=== PATIENT | female | born 1945 | race Caucasian/White ===

== ENCOUNTER → 2017-04-14 | Outpatient (CLI) | payer MEDICARE, BC ==
--- NOTE | 2017-04-17 10:12 | MM ---
Reason for exam: screening (asymptomatic). Last mammogram was performed 1 year ago. History: Patient is postmenopausal. Took estrogen for 6 years. Took progesterone for 6 years. Physical Findings: A clinical breast exam by your physician is recommended on an annual basis and results should be correlated with mammographic findings. MG 3D Screening Mammo W/Cad Bilateral CC and MLO view(s) were taken. Prior study comparison: April 11, 2016, bilateral MG 3d screening mammo w/cad. June 20, 2012, [facility] DIGITAL RIGHT MAMMOGRAM w/CAD. The breast tissue is heterogeneously dense. This may lower the sensitivity of mammography. There is no discrete abnormality. No significant changes when compared with prior studies. ASSESSMENT: Negative, BI-RAD 1 RECOMMENDATION: Routine screening mammogram of both breasts in 1 year.
== END | disposition home or self-care (01) ==
LOC: RADMAMWWP 09:44
PROVIDERS: ATTEND Internal Medicine Geriatric Medicine
DX: Z12.31 Encounter for screening mammogram for malignant neoplasm of breast (principal)
CPT/HCPCS: 77063; G0202

== ENCOUNTER 2017-05-31 08:29 | Day surgery (SDC) | payer MEDICARE, BC ==
[2017-05-29 13:44] VITALS: BMI 28.3
[~2017-05-31 08:29] MED LIST: LIDOCAINE 1% 20 ML VIAL (10MG/ML) FOR IV START INTRADERMA PRN
[2017-05-31 08:45] VITALS: RESP 16; TEMP 98.3
[2017-05-31] MEDS ORDERED: LIDOCAINE 1% 20 ML VIAL (10MG/ML) FOR IV START INTRADERMA ONE (08:52)
[2017-05-31] MEDS: LACTATED RINGERS 1,000 ML IV SCH ×2 (08:52→09:36)
[2017-05-31] MEDS ORDERED: LIDOCAINE 1% INJ 10MG/ML (20 ML MDV) ONE (09:39)
[2017-05-31] MEDS ORDERED: PROPOFOL 10 MG/ML 20 ML VIAL IV ONE (09:39)
--- NOTE | 2017-05-31 09:44 | P.GSHP ---
History of Present Illness H&P Date: 05/31/17 Chief Complaint: Colon cancer screening Patient here today for screening colonoscopy. Last colonoscopy was 15 years ago. That was incomplete and she did require a barium enema following that that was normal. No bowel related complaints. No family history of colon cancer. Past Medical History Past Medical History: Hyperlipidemia, Osteoarthritis (OA), Sleep Apnea/CPAP/ BIPAP Additional Past Medical History / Comment(s): no cpap after weight loss, hemorrhoids, History of Any Multi-Drug Resistant Organisms: None Reported Past Surgical History: Cholecystectomy, Hysterectomy, Orthopedic Surgery, Tubal Ligation Additional Past Surgical History / Comment(s): left knee arthroscopy,sinus surgery, oral surgery, dennis cataracts Past Anesthesia/Blood Transfusion Reactions: Previous Problems w/ Anesthesia, Motion Sickness Additional Past Anesthesia/Blood Transfusion Reaction / Comment(s): oxygen level dropped and heartrate dropped low-ended up in ICU x 2-(general anesthesia) Smoking Status: Never smoker - Past Family History Sister(s) Family Medical History: Cancer Additional Family Medical History / Comment(s): brain Mother Family Medical History: Dementia Additional Family Medical History / Comment(s): Parkinson Father Family Medical History: Myocardial Infarction ([place]) Daughter(s) Family Medical History: Cancer Medications and Allergies Home Medications Medication Instructions Recorded Confirmed Type ALPRAZolam [Xanax] 0.25 mg PO BID PRN 03/28/16 05/31/17 History Aspirin 81 mg PO DAILY 03/28/16 05/31/17 History Atorvastatin [Lipitor] 10 mg PO DAILY 03/28/16 05/31/17 History Ergocalciferol [Vitamin D2 50,000 unit PO Q14D 03/28/16 05/31/17 History (DRISDOL)] Gabapentin [Neurontin] 400 mg PO TID 03/28/16 05/31/17 History Naproxen Sodium [Aleve] 220 - 440 mg PO BID PRN 03/28/16 05/31/17 History Loratadine [Claritin] 10 mg PO DAILY PRN 05/29/17 05/31/17 History Allergies Allergy/AdvReac Type Severity Reaction Status Date / Time duloxetine [From Cymbalta] Allergy Severe THROAT Verified 05/31/17 08:38 SWELLING, UNABLE TO URINATE,LOSS OF APPETITE Surgical - Exam Vital Signs Temp Pulse Resp BP Pulse Ox 98.3 F 56 L 16 101/59 95 05/31/17 08:44 05/31/17 08:44 05/31/17 08:44 05/31/17 08:44 05/31/17 08:44 Physical exam: General: Well-developed, well-nourished HEENT: Normocephalic, sclerae nonicteric Abdomen: Nontender, nondistended Extremities: No edema Neuro: Alert and oriented Assessment and Plan (1) Colon cancer screening Status: Acute
--- NOTE | 2017-05-31 09:57 | P.PCN ---
Date of Procedure: 05/31/17 Procedure(s) Performed: PREOPERATIVE DIAGNOSIS: Colon cancer screening POSTOPERATIVE DIAGNOSIS: Diverticulosis PROCEDURE: Colonoscopy ANESTHESIA: MAC SURGEON: Camden Urbano M.D. SPECIMENS: None ENDOSCOPIC PROCEDURE: The patient was placed on the endoscopy table in the left decubitus position. The Olympus colonoscope was inserted into the anus and passed under direct visualization to the base of the cecum. The appendiceal orifice was visualized. From that point the scope was slowly withdrawn inspecting all surfaces carefully. There were no neoplastic inflammatory or polypoid lesions throughout the cecum, ascending, transverse, descending, sigmoid and rectum. There was moderate diverticulosis noted throughout the colon but particularly in the descending and sigmoid. Digital rectal examination revealed small hemorrhoids. The patient was taken to the recovery room in stable condition per anesthesia guidelines. RECOMMENDATIONS: Increase fiber. Follow-up colonoscopy 10 years.
[2017-05-31 10:36] VITALS: BP 130/64; PULSE 68
== END 2017-05-31 10:56 | disposition home or self-care (01) ==
LOC: ORWHC2ENDO 08:29
PROVIDERS: ATTEND Surgery
DX: Z12.11 Encounter for screening for malignant neoplasm of colon (principal); E78.5 Hyperlipidemia, unspecified; K57.30 Diverticulosis of large intestine without perforation or abscess without bleeding; K64.9 Unspecified hemorrhoids; M19.90 Unspecified osteoarthritis, unspecified site; G47.33 Obstructive sleep apnea (adult) (pediatric); F41.9 Anxiety disorder, unspecified; Z79.82 Long term (current) use of aspirin; Z79.899 Other long term (current) drug therapy
CPT/HCPCS: J2001; J2704; G0121; 45378

== ENCOUNTER 2017-10-07 12:00 | Emergency (ER) | payer MEDICARE, BC ==
[2017-10-07] MEDS ORDERED: HYDROmorphone 0.5 MG/0.5 ML SYRINGE IVP STA (12:44)
--- NOTE | 2017-10-07 12:54 | ED ---
Weakness HPI - General Chief complaint: Weakness Stated complaint: Poss Infection in knee-post op Time Seen by Provider: 10/07/17 12:21 Source: patient, EMS Mode of arrival: EMS Limitations: no limitations - History of Present Illness Initial comments: Patient is a 71-year-old female presenting to the emergency department for left knee evaluation. She states that she had left knee surgery on Monday per Dr. Vidal Cheung out of [facility]. She states that since then, she has had increasing pain in the left knee and is concerned because she did not have home health nurse set up or rehab set up and she has been taking her Percocet 5 -325 every 4 hours and she continues to have pain. She also admits to generalized weakness but denies any chest pain, shortness of breath, abdominal pain, nausea/vomiting/diarrhea. She does admit to chills but no obvious fever. She called EMS because of the increasing pain and did not want to go back to [facility] because she was not happy with their treatment. - Related Data Home Medications Medication Instructions Recorded Confirmed ALPRAZolam [Xanax] 0.25 mg PO BID PRN 03/28/16 10/07/17 Atorvastatin [Lipitor] 10 mg PO DAILY 03/28/16 10/07/17 Ergocalciferol [Vitamin D2 50,000 unit PO Q14D 03/28/16 10/07/17 (DRISDOL)] Gabapentin [Neurontin] 400 mg PO TID 03/28/16 10/07/17 Aspirin EC [Ecotrin Low Dose] 81 mg PO Q12H 10/07/17 10/07/17 Meloxicam [Mobic] 7.5 mg PO BID 10/07/17 10/07/17 methylPREDNISolone [Medrol] 4 mg PO BID 10/07/17 10/07/17 oxyCODONE HCL/ACETAMINOPHEN 1 tab PO Q4H PRN 10/07/17 10/07/17 [Percocet 5-325 mg] Allergies Allergy/AdvReac Type Severity Reaction Status Date / Time duloxetine [From Cymbalta] Allergy Severe Anaphylaxis Verified 10/07/17 12:41 Review of Systems ROS Statement: Those systems with pertinent positive or pertinent negative responses have been documented in the HPI. Constitutional: Negative for chills, fatigue and fever. Positive for generalized weakness HENT: Negative for congestion. Respiratory: Negative for chest tightness, shortness of breath and wheezing. Cardiovascular: Negative for chest pain and palpitations. Gastrointestinal: Negative for abdominal pain. Negative for abdominal distention , diarrhea, nausea and vomiting. Genitourinary: Negative for dysuria. Musculoskeletal: Negative for back pain, neck pain and neck stiffness. Positive for left knee pain Skin: Negative for color change. Neurological: Negative for dizziness, speech difficulty, weakness and light- headedness. Psychiatric/Behavioral: Negative for agitation and confusion. The patient is not nervous/anxious. ROS Other: All systems not noted in ROS Statement are negative. Past Medical History Past Medical History: Hyperlipidemia, Osteoarthritis (OA), Sleep Apnea/CPAP/ BIPAP Additional Past Medical History / Comment(s): no cpap after weight loss, hemorrhoids, History of Any Multi-Drug Resistant Organisms: None Reported Past Surgical History: Cholecystectomy, Hysterectomy, Orthopedic Surgery, Tubal Ligation Additional Past Surgical History / Comment(s): left knee arthroscopy,sinus surgery, oral surgery, dennis cataracts Past Anesthesia/Blood Transfusion Reactions: Previous Problems w/ Anesthesia, Motion Sickness Additional Past Anesthesia/Blood Transfusion Reaction / Comment(s): oxygen level dropped and heartrate dropped low-ended up in ICU x 2-(general anesthesia) Smoking Status: Never smoker - Past Family History Sister(s) Family Medical History: Cancer Additional Family Medical History / Comment(s): brain Mother Family Medical History: Dementia Additional Family Medical History / Comment(s): Parkinson Father Family Medical History: Myocardial Infarction ([place]) Daughter(s) Family Medical History: Cancer General Exam - General Exam Comments Initial Comments: Physical Exam Constitutional: Pt is oriented to person, place, and time. Pt appears well- developed and well-nourished. No distress. HENT: Head: Normocephalic and atraumatic. Eyes: EOM are normal. Neck: Normal range of motion. Neck supple. Cardiovascular: Normal rate, regular rhythm, S1 normal, S2 normal and normal heart sounds. Exam reveals no gallop and no friction rub. No murmur heard. Pulmonary/Chest: Effort normal and breath sounds normal. No tachypnea and no bradypnea. No respiratory distress. No wheezes or rales noted. Abdominal: Soft. Bowel sounds are normal. Pt exhibits no shifting dullness, no distension, no pulsatile liver, no fluid wave, no abdominal bruit and no ascites. There is no tenderness. There is no rigidity, no rebound, no guarding, no tenderness at McBurney's point and negative Lomeli's sign. Musculoskeletal: Decreased range of motion of left knee. Surgical incision is well-appearing with no obvious drainage or exudates. There is no effusion of the knee and no warmth or overlying erythema indicating cellulitis. Neurological: Pt is alert and oriented to person, place, and time. No cranial nerve deficit. Skin: Skin is warm and dry. No rash noted. He is not diaphoretic. No erythema. No pallor. Psychiatric: He has a normal mood and affect. His behavior is normal. Thought content normal. Limitations: no limitations Course Vital Signs 10/07/17 10/07/17 10/07/17 12:06 12:10 13:23 Temperature 97.8 F Pulse Rate 75 81 Respiratory 16 18 Rate Blood Pressure 181/77 161/74 O2 Sat by Pulse 96 95 Oximetry - Reevaluation(s) Reevaluation #1: 10/07/17 13:12 patient is resting a medical floor in no acute distress. She states that the medications helped her pain. EKG Findings - EKG Comments: EKG Findings:: EKG shows normal sinus rhythm with a rate of 74 bpm. VA interval 154 ms, QRS duration 80 ms, QTC 428 ms Medical Decision Making - Medical Decision Making Laboratory studies revealed that there is no leukocytosis and a I relatively within normal limits. Lactic acid was also noted to be normal at 0.7. Vital signs remained within normal limits and there is no evidence of tachycardia, hypoxia. Based on the overall assessment of the patient including laboratory studies, it is felt the patient does not have an infection. Multiple evaluations of the knee shows that there is no significant effusion or overlying erythema that would make us concerned for an infection. Additionally , the case was discussed with Dr. Drake's PA and it was advised that the patient could be discharged home and follow-up as an outpatient.in terms of the patient's generalized weakness, this is probably secondary to patient's postoperative status. Cardiac evaluation was negative and the EKG showed normal sinus rhythm and troponin was negative. Explained all labs and diagnostic test results and that we will discharge the patient home and patient is to follow up with PCP in 1-2 days and return to the ED if symptoms worsen. Pt is agreeable to plan. - Lab Data Result diagrams: 10/07/17 13:05 10/07/17 13:05 Lab Results 10/07/17 10/07/17 10/07/17 Range/Units 13:05 13:05 13:05 WBC 6.9 (3.8-10.6) k/uL RBC 3.56 L (3.80-5.40) m/uL Hgb 11.7 (11.4-16.0) gm/dL Hct 34.9 (34.0-46.0) % MCV 98.0 (80.0-100.0) fL MCH 32.8 (25.0-35.0) pg MCHC 33.5 (31.0-37.0) g/dL RDW 13.0 (11.5-15.5) % Plt Count 169 (150-450) k/uL Neutrophils % 69 % Lymphocytes % 21 % Monocytes % 7 % Eosinophils % 1 % Basophils % 0 % Neutrophils # 4.8 (1.3-7.7) k/uL Lymphocytes # 1.5 (1.0-4.8) k/uL Monocytes # 0.5 (0-1.0) k/uL Eosinophils # 0.1 (0-0.7) k/uL Basophils # 0.0 (0-0.2) k/uL PT (9.0-12.0) sec INR (<1.2) APTT (22.0-30.0) sec Sodium 141 (137-145) mmol/L Potassium 3.8 (3.5-5.1) mmol/L Chloride 103 (98-107) mmol/L Carbon Dioxide 31 H (22-30) mmol/L Anion Gap 7 mmol/L BUN 15 (7-17) mg/dL Creatinine 0.50 L (0.52-1.04) mg/dL Est GFR (MDRD) Af Amer >60 (>60 ml/min/1.73 sqM) Est GFR (MDRD) Non-Af >60 (>60 ml/min/1.73 sqM) Glucose 108 H (74-99) mg/dL Plasma Lactic Acid Saad 0.7 (0.7-2.0) mmol/L Calcium 8.6 (8.4-10.2) mg/dL Total Bilirubin 0.5 (0.2-1.3) mg/dL AST 23 (14-36) U/L ALT 25 (9-52) U/L Alkaline Phosphatase 67 (38-126) U/L Troponin I (0.000-0.034) ng/mL Total Protein 5.9 L (6.3-8.2) g/dL Albumin 3.3 L (3.5-5.0) g/dL 10/07/17 10/07/17 Range/Units 13:05 13:05 WBC (3.8-10.6) k/uL RBC (3.80-5.40) m/uL Hgb (11.4-16.0) gm/dL Hct (34.0-46.0) % MCV (80.0-100.0) fL MCH (25.0-35.0) pg MCHC (31.0-37.0) g/dL RDW (11.5-15.5) % Plt Count (150-450) k/uL Neutrophils % % Lymphocytes % % Monocytes % % Eosinophils % % Basophils % % Neutrophils # (1.3-7.7) k/uL Lymphocytes # (1.0-4.8) k/uL Monocytes # (0-1.0) k/uL Eosinophils # (0-0.7) k/uL Basophils # (0-0.2) k/uL PT 12.6 H (9.0-12.0) sec INR 1.3 H (<1.2) APTT 25.2 (22.0-30.0) sec Sodium (137-145) mmol/L Potassium (3.5-5.1) mmol/L Chloride (98-107) mmol/L Carbon Dioxide (22-30) mmol/L Anion Gap mmol/L BUN (7-17) mg/dL Creatinine (0.52-1.04) mg/dL Est GFR (MDRD) Af Amer (>60 ml/min/1.73 sqM) Est GFR (MDRD) Non-Af (>60 ml/min/1.73 sqM) Glucose (74-99) mg/dL Plasma Lactic Acid Saad (0.7-2.0) mmol/L Calcium (8.4-10.2) mg/dL Total Bilirubin (0.2-1.3) mg/dL AST (14-36) U/L ALT (9-52) U/L Alkaline Phosphatase (38-126) U/L Troponin I <0.012 (0.000-0.034) ng/mL Total Protein (6.3-8.2) g/dL Albumin (3.5-5.0) g/dL Disposition Clinical Impression: Left knee pain Disposition: HOME SELF-CARE Condition: Good Instructions: Knee Pain (ED) Referrals: Remberto Otto MD [Primary Care Provider] - 1-2 days Jonatan Drake MD [REFERRING] - 1-2 days Time of Disposition: 14:46
[2017-10-07] MEDS ORDERED: HYDROmorphone 2 MG/ML 1 ML SYRINGE IVP STA (13:16)
[2017-10-07 13:24] VITALS: RESP 18
[2017-10-07 13:28] LABS: Basophils % (A) 0 %; Eosinophils # (A) 0.1 k/uL (0-0.7); Eosinophils % (A) 1 %; HCT 34.9 % (34.0-46.0); HGB 11.7 gm/dL (11.4-16.0); Lymphocytes # (A) 1.5 k/uL (1.0-4.8); Lymphocytes % (A) 21 %; MCH 32.8 pg (25.0-35.0); MCHC 33.5 g/dL (31.0-37.0); Mean Platelet Volume 6.9; Monocytes # (A) 0.5 k/uL (0-1.0); Monocytes % (A) 7 %; Neutrophils # (A) 4.8 k/uL (1.3-7.7); Neutrophils % (A) 69 %; Platelet Count 169 k/uL (150-450); RBC 3.56 m/uL (3.80-5.40); WBC 6.9 k/uL (3.8-10.6)
[2017-10-07 13:33] LABS: INR 1.3 (<1.2); Partial Thromboplastin Time 25.2 sec (22.0-30.0); Prothrombin Time 12.6 sec (9.0-12.0)
[2017-10-07 13:34] LABS: ALT 25 U/L (9-52); AST 23 U/L (14-36); Albumin 3.3 g/dL (3.5-5.0); Alkaline Phosphatase 67 U/L (38-126); Anion Gap 7 mmol/L; Blood Urea Nitrogen 15 mg/dL (7-17); Calcium 8.6 mg/dL (8.4-10.2); Carbon Dioxide 31 mmol/L (22-30); Chloride 103 mmol/L (98-107); Glucose 108 mg/dL (74-99); Sodium 141 mmol/L (137-145); Total Bilirubin 0.5 mg/dL (0.2-1.3); Total Protein 5.9 g/dL (6.3-8.2)
[2017-10-07 13:42] LABS: Potassium 3.8 mmol/L (3.5-5.1)
--- NOTE | 2017-10-07 14:29 | XR ---
EXAMINATION TYPE: XR chest 1V portable DATE OF EXAM: 10/07/2017 COMPARISON: None INDICATION: Weakness TECHNIQUE: Single frontal view of the chest is obtained. FINDINGS: The heart size is normal. The pulmonary vasculature is normal. Mild posterior medial right lower lobe infiltrate may be present. Clinical correlation is recommended . There is focal eventration of the right diaphragm. IMPRESSION: 1. Clinical correlation recommended for mild posterior medial right middle lobe infiltrate. 2. Examination is otherwise unremarkable.
--- NOTE | 2017-10-07 14:30 | XR ---
EXAMINATION TYPE: XR knee limited LT DATE OF EXAM: 10/07/2017 COMPARISON: NONE HISTORY: Knee replacement, continued pain TECHNIQUE: 2 view left knee FINDINGS: Tibial and femoral components have been placed. Surgical skin joselin are present anteriorl y. No significant effusion is evident. IMPRESSION: 1. No acute fractures post knee replacement.
[2017-10-07] MEDS ORDERED: MORPHINE SULFATE 2 MG/ML SYRINGE IVP STA (14:51)
[2017-10-07 15:26] VITALS: BP 169/78; PULSE 69; TEMP 98.5
== END 2017-10-07 15:26 | disposition home or self-care (01) ==
LOC: EC 12:00
DX: M25.562 Pain in left knee (principal); R53.1 Weakness; R68.83 Chills (without fever); E78.5 Hyperlipidemia, unspecified; M19.90 Unspecified osteoarthritis, unspecified site; G47.30 Sleep apnea, unspecified; Z99.89 Dependence on other enabling machines and devices; Z79.82 Long term (current) use of aspirin; Z79.1 Long term (current) use of non-steroidal anti-inflammatories (NSAID); Z79.899 Other long term (current) drug therapy; Z88.8 Allergy status to other drugs, medicaments and biological substances; Z98.890 Other specified postprocedural states; Z53.8 Procedure and treatment not carried out for other reasons
CPT/HCPCS: 36415; 93005; 80053; 83605; 84484; 85025; 85610; 85730; 73560; 71045; 99285; 96374; 96375; J1170; J2270

== ENCOUNTER → 2018-05-02 | Outpatient (CLI) | payer MEDICARE, BC ==
--- NOTE | 2018-05-02 17:12 | BD ---
EXAMINATION TYPE: Axial Bone Density DATE OF EXAM: 05/02/2018 COMPARISON: 04/11/2016 CLINICAL HISTORY: Height: 62 IN Weight: 142 LBS FRAX RISK QUESTIONS: Secondary Osteoporosis: 3. Menopause before 45: AGE 43 RISK FACTORS HISTORY OF: Family History of Osteoporosis: MOTHER AND FATHER Active: MODERATE Diet low in dairy products/other sources of calcium: YES Postmenopausal woman: AGE 43 Take estrogen and/or progesterone medications: NOT NOW How long: AGE 49-55 MEDICATIONS: Additional Medications: STATIN, DEPRESSION MEDS, XANAX, VIT D, PAIN MEDS Additional History: EXAM MEASUREMENTS: Bone mineral densitometry was performed using the [employer] System. Bone mineral density as measured about the Lumbar spine is: ----- L1-L4(G/cm2): 1.404 T Score Values are as follows: ----- L2: 1.4 ----- L3: 2.5 ----- L4: 2.1 ----- L1-L4: 1.9 Bone mineral density has: Decreased -2.0% since study of: 04/11/2016 Bone mineral density about the R hip (g/cm2): 0.845 Bone mineral density about the L hip (g/cm2): 0.894 T Score values are as follows: -----R Neck: -1.4 -----L Neck: -1.0 -----R Total: -0.9 -----L Total: -0.3 Bone mineral density has: Decreased -3.0% since study of: 04/11/2016 IMPRESSION: Osteopenia (T Score between -2.5 and -1). There is slightly increased risk of fracture and the patient may be considered for treatment. Re-Screen 2-5 years. NOTE: T-SCORE=SD OF THE YOUNG ADULT MEAN.
--- NOTE | 2018-05-03 14:51 | MM ---
Reason for exam: screening (asymptomatic). Last mammogram was performed 1 year and 1 month ago. History: Patient is postmenopausal. Took estrogen for 6 years. Took progesterone for 6 years. Physical Findings: A clinical breast exam by your physician is recommended on an annual basis and results should be correlated with mammographic findings. MG 3D Screening Mammo W/Cad Bilateral CC and MLO view(s) were taken. Prior study comparison: April 14, 2017, bilateral MG 3d screening mammo w/cad. April 11, 2016, bilateral MG 3d screening mammo w/cad. The breast tissue is heterogeneously dense. This may lower the sensitivity of mammography. There is no discrete abnormality. No significant changes when compared with prior studies. ASSESSMENT: Negative, BI-RAD 1 RECOMMENDATION: Routine screening mammogram of both breasts in 1 year.
== END | disposition home or self-care (01) ==
LOC: RADMAMWWP 11:52
PROVIDERS: ATTEND Internal Medicine Geriatric Medicine
DX: Z12.31 Encounter for screening mammogram for malignant neoplasm of breast (principal); M81.0 Age-related osteoporosis without current pathological fracture; M85.80 Other specified disorders of bone density and structure, unspecified site
CPT/HCPCS: 77063; 77067; 77080

== ENCOUNTER 2019-01-21 15:07 | Emergency (ER) | payer MEDICARE, BC ==
[2019-01-21 15:22] VITALS: BP 106/69; PULSE 66; RESP 18; TEMP 97.9
--- NOTE | 2019-01-21 15:43 | ED ---
Fall HPI - General Chief Complaint: Fall Stated Complaint: fall/hit head Time Seen by Provider: 01/21/19 15:35 Source: patient Mode of arrival: wheelchair Limitations: no limitations - History of Present Illness Initial Comments: 73-year-old female presents emergency Department chief was slip and fall and head injury. Patient states that she had her socks and states that she went down her wooden step and states that she fell back striking her head. There is no loss conscious. Patient went of headache and some upper neck pain. Patient denies any blurred vision. Patient did have some associated nausea and felt dazed initially. Patient denies any other complaints. Patient states that she is able to ambulate without difficulty at this time. Patient denies taking any blood thinners. - Related Data Home Medications Medication Instructions Recorded Confirmed ALPRAZolam [Xanax] 0.25 mg PO BID PRN 03/28/16 10/07/17 Atorvastatin [Lipitor] 10 mg PO DAILY 03/28/16 10/07/17 Ergocalciferol [Vitamin D2 50,000 unit PO Q14D 03/28/16 10/07/17 (DRISDOL)] Gabapentin [Neurontin] 400 mg PO TID 03/28/16 10/07/17 Aspirin EC [Ecotrin Low Dose] 81 mg PO Q12H 10/07/17 10/07/17 Meloxicam [Mobic] 7.5 mg PO BID 10/07/17 10/07/17 methylPREDNISolone [Medrol] 4 mg PO BID 10/07/17 10/07/17 oxyCODONE HCL/ACETAMINOPHEN 1 tab PO Q4H PRN 10/07/17 10/07/17 [Percocet 5-325 mg] Allergies Allergy/AdvReac Type Severity Reaction Status Date / Time duloxetine [From Cymbalta] Allergy Severe Anaphylaxis Verified 01/21/19 16:42 Review of Systems ROS Statement: Those systems with pertinent positive or pertinent negative responses have been documented in the HPI. ROS Other: All systems not noted in ROS Statement are negative. Past Medical History Past Medical History: Hyperlipidemia, Osteoarthritis (OA), Sleep Apnea/CPAP/BIPAP Additional Past Medical History / Comment(s): no cpap after weight loss, hemorrhoids, History of Any Multi-Drug Resistant Organisms: None Reported Past Surgical History: Cholecystectomy, Hysterectomy, Orthopedic Surgery, Tubal Ligation Additional Past Surgical History / Comment(s): left knee arthroscopy,sinus surgery, oral surgery, dennis cataracts Past Anesthesia/Blood Transfusion Reactions: Previous Problems w/ Anesthesia, Motion Sickness Additional Past Anesthesia/Blood Transfusion Reaction / Comment(s): oxygen level dropped and heartrate dropped low-ended up in ICU x 2-(general anesthesia) Past Psychological History: Anxiety, Depression Smoking Status: Never smoker Past Alcohol Use History: None Reported Past Drug Use History: None Reported - Past Family History Sister(s) Family Medical History: Cancer Additional Family Medical History / Comment(s): brain Mother Family Medical History: Dementia Additional Family Medical History / Comment(s): Parkinson Father Family Medical History: Myocardial Infarction ([place]) Daughter(s) Family Medical History: Cancer General Exam Limitations: no limitations General appearance: alert, in no apparent distress Head exam: Present: atraumatic, normocephalic, normal inspection Eye exam: Present: normal appearance, PERRL, EOMI. Absent: scleral icterus, conjunctival injection, periorbital swelling ENT exam: Present: normal exam, normal oropharynx, mucous membranes moist, TM's normal bilaterally Neck exam: Present: normal inspection, full ROM. Absent: tenderness, mening ismus, lymphadenopathy Respiratory exam: Present: normal lung sounds bilaterally. Absent: respiratory distress, wheezes, rales, rhonchi, stridor Cardiovascular Exam: Present: regular rate, normal rhythm, normal heart sounds. Absent: systolic murmur, diastolic murmur, rubs, gallop, clicks Neurological exam: Present: alert, oriented X3, CN II-XII intact, reflexes normal, other (Finger to nose intact bilaterally without shooting). Absent: motor sensory deficit Skin exam: Present: warm, dry, intact, normal color. Absent: rash Course Vital Signs 01/21/19 15:18 Temperature 97.9 F Pulse Rate 66 Respiratory 18 Rate Blood Pressure 106/69 O2 Sat by Pulse 93 L Oximetry Medical Decision Making - Medical Decision Making 73-year-old female presented for fall, head injury. CT of the head and neck were obtained no acute abnormality's. Patient be discharged return parameters were discussed. Disposition Clinical Impression: Fall, Head injury Disposition: HOME SELF-CARE Condition: Stable Instructions (If sedation given, give patient instructions): Fall Prevention for Older Adults (ED), Head Injury (ED) Additional Instructions: Please return to the Emergency Department if symptoms worsen or any other concerns. Is patient prescribed a controlled substance at d/c from ED?: No Referrals: Remberto Otto MD [Primary Care Provider] - 1-2 days Time of Disposition: 16:45
--- NOTE | 2019-01-21 16:36 | CT ---
EXAMINATION TYPE: CT brain cspine wo con DATE OF EXAM: 01/21/2019 COMPARISON: Prior CT brain 12/03/2013 HISTORY: Fall today with posterior head injury CT DLP: 1303 mGycm Automated exposure control for dose reduction was used. TECHNIQUE: CT scan of the head and cervical spine are performed without contrast. FINDINGS: There is no acute intracranial hemorrhage, mass effect, or midline shift identified. The ventricles and sulci are within normal limits in size. Probable posterior fossa arachnoid cyst is s table. The globes are intact and the visualized sinuses are clear. Cervical spine is visualized in its entirety from C1 through upper thoracic levels and demonstrates s atisfactory alignment without evidence of acute fracture or dislocation. Prevertebral soft tissue ap pears within normal limits. The C1-C2 articulation is unremarkable. There is multilevel spondylosis . Some loss of disc height present at intervertebral levels is noted. Multilevel facet arthropathy is present with some foraminal encroachment. Proximal descending aorta measures 3.2 cm. IMPRESSION: 1. There is no acute fracture or dislocation evident in the cervical spine. 2. No acute intracranial hemorrhage, mass effect, or midline shift is seen.
== END 2019-01-21 16:55 | disposition home or self-care (01) ==
LOC: EC 15:07
DX: S09.90XA Unspecified injury of head, initial encounter (principal); M54.2 Cervicalgia; E78.5 Hyperlipidemia, unspecified; M19.90 Unspecified osteoarthritis, unspecified site; G47.30 Sleep apnea, unspecified; Z99.89 Dependence on other enabling machines and devices; Z79.82 Long term (current) use of aspirin; Z79.1 Long term (current) use of non-steroidal anti-inflammatories (NSAID); Z79.52 Long term (current) use of systemic steroids; Z79.899 Other long term (current) drug therapy; Z88.8 Allergy status to other drugs, medicaments and biological substances; W10.9XXA Fall (on) (from) unspecified stairs and steps, initial encounter; Y92.009 Unspecified place in unspecified non-institutional (private) residence as the place of occurrence of the external cause
CPT/HCPCS: 70450; 72125; 99283

== ENCOUNTER 2019-06-08 15:15 | Observation (INO) | payer MEDICARE, BC ==
[2019-06-08] MEDS ORDERED: NITROGLYCERIN OINT 1 INCH/GM PACKET TOPICAL STA (15:46)
[2019-06-08] MEDS ORDERED: ASPIRIN 81 MG PO STA (15:46)
[2019-06-08 15:56] LABS: Basophils % (A) 1 %; Eosinophils # (A) 0.1 k/uL (0-0.7); Eosinophils % (A) 2 %; HCT 43.4 % (34.0-46.0); HGB 14.2 gm/dL (11.4-16.0); Lymphocytes # (A) 1.4 k/uL (1.0-4.8); Lymphocytes % (A) 35 %; MCH 32.7 pg (25.0-35.0); MCHC 32.7 g/dL (31.0-37.0); MCV 99.8 fL (80.0-100.0); Mean Platelet Volume 7.1; Monocytes # (A) 0.3 k/uL (0-1.0); Monocytes % (A) 7 %; Neutrophils # (A) 2.1 k/uL (1.3-7.7); Neutrophils % (A) 52 %; Platelet Count 195 k/uL (150-450); RBC 4.34 m/uL (3.80-5.40)
[2019-06-08 16:06] LABS: INR 0.9 (<1.2); Partial Thromboplastin Time 24.9 sec (22.0-30.0); Prothrombin Time 10.2 sec (9.0-12.0)
[2019-06-08 16:10] LABS: ALT 14 U/L (9-52); AST 24 U/L (14-36); African American GFR (CKD) >90 (>60 ml/min/1.73 sqM); Albumin 3.9 g/dL (3.5-5.0); Alkaline Phosphatase 69 U/L (38-126); Anion Gap 6 mmol/L; Blood Urea Nitrogen 11 mg/dL (7-17); Calcium 9.2 mg/dL (8.4-10.2); Carbon Dioxide 27 mmol/L (22-30); Chloride 108 mmol/L (98-107); Glucose 111 mg/dL (74-99); Magnesium 2.1 mg/dL (1.6-2.3); Sodium 141 mmol/L (137-145); Total Bilirubin 0.5 mg/dL (0.2-1.3); Total Protein 6.7 g/dL (6.3-8.2)
--- NOTE | 2019-06-08 16:33 | XR ---
EXAMINATION TYPE: XR chest 2V DATE OF EXAM: 06/08/2019 COMPARISON: October 07, 2017 HISTORY: Chest pain TECHNIQUE: Frontal and lateral views of the chest are obtained. FINDINGS: Heart is normal. Lungs are clear of consolidation. There are chest leads. There are no hil ar masses. Bony thorax is intact. There is minimal linear density at the left lung base. IMPRESSION: Minimal scarring at the left lung base unchanged. Normal heart.
--- NOTE | 2019-06-08 16:33 | ED ---
General Adult HPI - General Chief complaint: Chest Pain Stated complaint: chest pain Time Seen by Provider: 06/08/19 15:20 Source: patient, RN notes reviewed Mode of arrival: wheelchair Limitations: no limitations - History of Present Illness Initial comments: This is a 73-year-old female presents emergency Department with chest pain that radiates to her back and up into her right shoulder. Patient states it started at 9:00 and it was much worse at that time. Patient states she also noted that she was somewhat short of breath while walking today which she normally is not. Patient states she has no diabetes or high blood pressure however she does have high cholesterol. Recent states her sister does have A. fib and her father of a heart attack in his 80s. Patient denies any smoking history. Patient states currently she is having some chest pain but is much improved from earlier. Patient denies any shortness of breath currently she denies any episodes diaphoresis today patient denies any nausea. Patient denies any abdominal pain. Patient denies being lightheaded or dizzy at all today. Patient denies any headache today. Patient denies any numbness or weakness. Patient denies any swelling to the legs or calf tenderness. - Related Data Home Medications Medication Instructions Recorded Confirmed Atorvastatin [Lipitor] 10 mg PO DAILY 03/28/16 06/08/19 Ergocalciferol [Vitamin D2 50,000 unit PO Q14D 03/28/16 06/08/19 (DRISDOL)] Aspirin EC [Ecotrin Low Dose] 81 mg PO DAILY 10/07/17 06/08/19 Allergies Allergy/AdvReac Type Severity Reaction Status Date / Time duloxetine [From Cymbalta] Allergy Severe Anaphylaxis Verified 06/08/19 15:57 Review of Systems ROS Statement: Those systems with pertinent positive or pertinent negative responses have been documented in the HPI. ROS Other: All systems not noted in ROS Statement are negative. Past Medical History Past Medical History: Hyperlipidemia, Osteoarthritis (OA), Sleep Apnea/CPAP/BI PAP Additional Past Medical History / Comment(s): no cpap after weight loss, hemorrhoids, History of Any Multi-Drug Resistant Organisms: None Reported Past Surgical History: Cholecystectomy, Hysterectomy, Orthopedic Surgery, Tubal Ligation Additional Past Surgical History / Comment(s): left knee arthroscopy,sinus surgery, oral surgery, dennis cataracts Past Anesthesia/Blood Transfusion Reactions: Previous Problems w/ Anesthesia, Motion Sickness Additional Past Anesthesia/Blood Transfusion Reaction / Comment(s): oxygen level dropped and heartrate dropped low-ended up in ICU x 2-(general anesthesia) Past Psychological History: Anxiety, Depression Smoking Status: Never smoker Past Alcohol Use History: None Reported Past Drug Use History: None Reported - Past Family History Sister(s) Family Medical History: Cancer Additional Family Medical History / Comment(s): brain Mother Family Medical History: Dementia Additional Family Medical History / Comment(s): Parkinson Father Family Medical History: Myocardial Infarction ([place]) Daughter(s) Family Medical History: Cancer General Exam - General Exam Comments Initial Comments: GENERAL: Patient is well-developed and well-nourished. Patient is nontoxic and well- hydrated and is in mild distress. ENT: Neck is soft and supple. No significant lymphadenopathy is noted. Oropharynx is clear. Moist mucous membranes. Neck has full range of motion without eliciting any pain. EYES: The sclera were anicteric and conjunctiva were pink and moist. Extraocular movements were intact and pupils were equal round and reactive to light. Eyelids were unremarkable. PULMONARY: Unlabored respirations. Good breath sounds bilaterally. No audible rales rhonchi or wheezing was noted. CARDIOVASCULAR: There is a regular rate and rhythm without any murmurs gallops or rubs. ABDOMEN: Soft and nontender with normal bowel sounds. SKIN: Skin is clear with no lesions or rashes and otherwise unremarkable. NEUROLOGIC: Patient is alert and oriented x3. Cranial nerves II through XII are grossly intact. Motor and sensory are also intact. Normal speech, volume and content. Symmetrical smile. MUSCULOSKELETAL: Normal extremities with adequate strength and full range of motion. LYMPHATICS: No significant lymphadenopathy is noted PSYCHIATRIC: Normal psychiatric evaluation. Limitations: no limitations Course Vital Signs 06/08/19 15:19 Temperature 97.8 F Pulse Rate 73 Respiratory 18 Rate Blood Pressure 112/68 O2 Sat by Pulse 98 Oximetry Medical Decision Making - Medical Decision Making EKG shows normal sinus rhythm at 65 bpm CO interval is 160 QRS is 86 QT interval 398 QTC is 413. Patient's EKG shows no ST segment elevation or depression or T wave abnormalities are noted Chest x-ray shows no acute abnormality. I started the patient on heparin because of the unstable angina picture. I spoke with the [facility] he agreed to admit the patient admitted the patient wrote admitting orders. I consult cardiology. Continue aspirin heparin nitro on the floor. - Lab Data Result diagrams: 06/08/19 15:40 06/08/19 15:40 Lab Results 06/08/19 06/08/19 06/08/19 Range/Units 15:40 15:40 15:40 WBC 4.0 (3.8-10.6) k/uL RBC 4.34 (3.80-5.40) m/uL Hgb 14.2 (11.4-16.0) gm/dL Hct 43.4 (34.0-46.0) % MCV 99.8 (80.0-100.0) fL MCH 32.7 (25.0-35.0) pg MCHC 32.7 (31.0-37.0) g/dL RDW 13.0 (11.5-15.5) % Plt Count 195 (150-450) k/uL Neutrophils % 52 % Lymphocytes % 35 % Monocytes % 7 % Eosinophils % 2 % Basophils % 1 % Neutrophils # 2.1 (1.3-7.7) k/uL Lymphocytes # 1.4 (1.0-4.8) k/uL Monocytes # 0.3 (0-1.0) k/uL Eosinophils # 0.1 (0-0.7) k/uL Basophils # 0.0 (0-0.2) k/uL PT 10.2 (9.0-12.0) sec INR 0.9 (<1.2) APTT 24.9 (22.0-30.0) sec Sodium 141 (137-145) mmol/L Potassium 4.0 (3.5-5.1) mmol/L Chloride 108 H (98-107) mmol/L Carbon Dioxide 27 (22-30) mmol/L Anion Gap 6 mmol/L BUN 11 (7-17) mg/dL Creatinine 0.55 (0.52-1.04) mg/dL Est GFR (CKD-EPI)AfAm >90 (>60 ml/min/1.73 sqM) Est GFR (CKD-EPI)NonAf >90 (>60 ml/min/1.73 sqM) Glucose 111 H (74-99) mg/dL Calcium 9.2 (8.4-10.2) mg/dL Magnesium 2.1 (1.6-2.3) mg/dL Total Bilirubin 0.5 (0.2-1.3) mg/dL AST 24 (14-36) U/L ALT 14 (9-52) U/L Alkaline Phosphatase 69 (38-126) U/L Troponin I (0.000-0.034) ng/mL Total Protein 6.7 (6.3-8.2) g/dL Albumin 3.9 (3.5-5.0) g/dL 06/08/19 Range/Units 15:40 WBC (3.8-10.6) k/uL RBC (3.80-5.40) m/uL Hgb (11.4-16.0) gm/dL Hct (34.0-46.0) % MCV (80.0-100.0) fL MCH (25.0-35.0) pg MCHC (31.0-37.0) g/dL RDW (11.5-15.5) % Plt Count (150-450) k/uL Neutrophils % % Lymphocytes % % Monocytes % % Eosinophils % % Basophils % % Neutrophils # (1.3-7.7) k/uL Lymphocytes # (1.0-4.8) k/uL Monocytes # (0-1.0) k/uL Eosinophils # (0-0.7) k/uL Basophils # (0-0.2) k/uL PT (9.0-12.0) sec INR (<1.2) APTT (22.0-30.0) sec Sodium (137-145) mmol/L Potassium (3.5-5.1) mmol/L Chloride (98-107) mmol/L Carbon Dioxide (22-30) mmol/L Anion Gap mmol/L BUN (7-17) mg/dL Creatinine (0.52-1.04) mg/dL Est GFR (CKD-EPI)AfAm (>60 ml/min/1.73 sqM) Est GFR (CKD-EPI)NonAf (>60 ml/min/1.73 sqM) Glucose (74-99) mg/dL Calcium (8.4-10.2) mg/dL Magnesium (1.6-2.3) mg/dL Total Bilirubin (0.2-1.3) mg/dL AST (14-36) U/L ALT (9-52) U/L Alkaline Phosphatase (38-126) U/L Troponin I <0.012 (0.000-0.034) ng/mL Total Protein (6.3-8.2) g/dL Albumin (3.5-5.0) g/dL Critical Care Time Critical Care Time: Yes Total Critical Care Time: 35 Disposition Clinical Impression: Unstable angina pectoris Disposition: ADMITTED IP TO THIS HOSP Referrals: Remberto Otto MD [Primary Care Provider] - 1-2 days Time of Disposition: 16:47
[2019-06-08] MEDS ORDERED: HEPARIN SODIUM,PORCINE 5,000 UNIT/ML 1 ML VIAL IV ONE (16:44)
[2019-06-08] MEDS ORDERED: HEPARIN SOD,PORK IN 0.45% NACL 25,000 UNIT in 0.45% NACL 1 250ML.BAG IV SCH (16:45)
[2019-06-08] MEDS ORDERED: NITROGLYCERIN SL TABS 0.4 MG TAB SUBLINGUAL PRN (16:47)
[2019-06-08] MEDS: NITROGLYCERIN OINT 1 INCH/GM PACKET TOPICAL SCH ×2 (19:58→23:53)
[2019-06-09] MEDS: NITROGLYCERIN OINT 1 INCH/GM PACKET TOPICAL SCH ×3 (05:49→17:09)
[2019-06-09 05:53] LABS: Cholesterol 125 mg/dL (<200); HDL Cholesterol 37 mg/dL (40-60); LDL Cholesterol,Calculated 70 mg/dL (0-99); Triglycerides 90 mg/dL (<150)
[2019-06-09] MEDS ORDERED: REGADENOSON 0.4 MG/5 ML SYRINGE IV ONE (07:00)
[2019-06-09] MEDS: ATORVASTATIN 10 MG TAB PO SCH (08:37)
[2019-06-09] MEDS: ASPIRIN 325 MG TAB PO SCH (08:37)
[2019-06-09] MEDS: HEPARIN SODIUM,PORCINE 5,000 UNIT/ML 1 ML VIAL SQ SCH ×2 (08:38→17:07)
[2019-06-09 11:10] VITALS: BMI 28.3
--- NOTE | 2019-06-09 11:48 | P.HPIM ---
History of Present Illness H&P Date: 06/09/19 Chief Complaint: Chest pain This is a 73-year-old female patient of Dr. Otto with past medical history of hyperlipidemia, obstructive sleep apnea without CPAP. The patient states that she has not been feeling well and yesterday at 9:00 she developed chest pain and in general she was feeling very poorly. She states she had some shortness of breath when she walked from the car in the parking lot to the emergency center. She denies any history of myocardial infarction. She states the pain radiated to her back. She denies any sweats. She just felt lousy. Patient denies any chest pain at the time of evaluation. She thinks the resting made her pain better. She does have a history of panic attacks since her . Patient had a heart catheterization done by Dr. Melton in 2016 that revealed mild obstructive disease involving the proximal LAD. Normal left ventricle size and systolic function. Patient came into [facility] emergency center for evaluation. Vital signs were stable, CBC unremarkable. Creatinine 0.55, blood sugar 111. Troponin negative. Subsequently all 3 troponins have been negative. She was on heparin drip which has been discontinued. Patient was admitted to the cardiac stepdown unit and seen by cardiology with plan for echocardiogram and stress echocardiogram for tomorrow. Chest x-ray reveals minimal scarring at the left lung base unchanged. Normal heart. Review of Systems Constitutional: Reports fatigue, Reports malaise, Reports poor appetite, Reports weakness, Denies chills, Denies fever, Denies lethargy Eyes: denies blurred vision, denies pain Ears, nose, mouth and throat: Denies dysphagia, Denies headache, Denies nasal congestion, Denies nasal discharge, Denies sore throat, Denies vertigo Cardiovascular: Reports chest pain, Reports dyspnea on exertion, Denies edema, Denies leg edema, Denies lightheadedness, Denies shortness of breath, Denies syncope Respiratory: Reports sleep apnea, Denies cough, Denies cough with sputum, Denies dyspnea, Denies excessive sputum, Denies hemoptysis, Denies home oxygen, Denies wheezing Gastrointestinal: Denies abdominal pain, Denies diarrhea, Denies nausea, Denies vomiting Genitourinary: Denies dysuria, Denies hematuria, Denies urgency, Denies urinary frequency Musculoskeletal: Denies frequent falls, Denies gait dysfunction, Denies muscle weakness, Denies myalgias Integumentary: Denies pruritus, Denies rash, Denies wounds Neurological: Denies change in mentation, Denies change in speech, Denies numbness, Denies weakness Psychiatric: Denies anxiety, Denies depression, Denies suicidal ideation Endocrine: Denies fatigue, Denies weight change Past Medical History Past Medical History: Hyperlipidemia, Osteoarthritis (OA), Sleep Apnea/CPAP/BIPAP Additional Past Medical History / Comment(s): no cpap after weight loss, hemorrhoids, History of Any Multi-Drug Resistant Organisms: None Reported Past Surgical History: Cholecystectomy, Hysterectomy, Orthopedic Surgery, Tubal Ligation Additional Past Surgical History / Comment(s): left knee arthroscopy,sinus surgery, oral surgery, dennis cataracts Past Anesthesia/Blood Transfusion Reactions: Previous Problems w/ Anesthesia, Motion Sickness Additional Past Anesthesia/Blood Transfusion Reaction / Comment(s): oxygen level dropped and heartrate dropped low-ended up in ICU x 2-(general anesthesia) Smoking Status: Never smoker Additional Past Alcohol Use History / Comment(s): Patient is a lifelong nonsmoker, no illicit drug use, no alcohol use. - Past Family History Sister(s) Family Medical History: Cancer Additional Family Medical History / Comment(s): Patient has one sister that at age 64 from brain cancer and 1 sister with atrial fibrillation. Mother Family Medical History: Dementia Additional Family Medical History / Comment(s): Mother has history of atrial fibrillation and Parkinson Father Family Medical History: Myocardial Infarction ([place]) Additional Family Medical History / Comment(s): Father has history of myocardial infarction while in his 80s. Daughter(s) Family Medical History: Cancer Additional Family Medical History / Comment(s): Daughter had congenital heart disease with open heart surgery at age 13. Medications and Allergies Home Medications Medication Instructions Recorded Confirmed Type Atorvastatin [Lipitor] 10 mg PO DAILY 03/28/16 06/08/19 History Ergocalciferol [Vitamin D2 50,000 unit PO Q14D 03/28/16 06/08/19 History (DRISDOL)] Aspirin EC [Ecotrin Low Dose] 81 mg PO DAILY 10/07/17 06/08/19 History Allergies Allergy/AdvReac Type Severity Reaction Status Date / Time duloxetine [From Cymbalta] Allergy Severe Anaphylaxis Verified 06/08/19 15:57 Physical Exam Vitals: Vital Signs Temp Pulse Pulse Resp BP BP BP 06/09/19 08:00 97.9 F 58 L 18 99/56 06/09/19 04:00 55 L 18 97/53 06/09/19 00:00 97.8 F 66 18 126/65 06/08/19 20:00 98.1 F 78 18 128/60 06/08/19 18:00 97.8 F 59 L 18 145/70 06/08/19 17:29 98.0 F 64 18 140/71 06/08/19 17:00 70 18 130/71 06/08/19 15:19 97.8 F 73 18 112/68 Pulse Ox 06/09/19 08:00 94 L 06/09/19 04:00 96 06/09/19 00:00 95 06/08/19 20:00 98 06/08/19 18:00 95 06/08/19 17:29 98 06/08/19 17:00 97 06/08/19 15:19 98 Intake and Output 06/08/19 06/09/19 06/09/19 22:59 06:59 14:59 Intake Total 240 Balance 240 Intake: Oral 240 Other: Voiding Method Toilet Toilet # Voids 1 1 Weight 70.307 kg 72.6 kg Gen: This is a 73-year-old female. Patient is resting been appears to be comfortable and in no acute distress. HEENT: Head is atraumatic, normocephalic. Pupils equal, round. Sclerae is anicteric. NECK: Supple. No JVD. No lymphadenopathy. No thyromegaly. LUNGS: Clear to auscultation. No wheezes or rhonchi. No intercostal retractions. HEART: Regular rate and rhythm. Systolic murmur. ABDOMEN: Soft. Bowel sounds are present. No masses. No tenderness. EXTREMITIES: No pedal edema. No calf tenderness. NEUROLOGICAL: Patient is awake, alert and oriented x3. Cranial nerves 2 through 12 are grossly intact. Results CBC & Chem 7: 06/08/19 15:40 06/08/19 15:40 Labs: Abnormal Lab Results - Last 24 Hours (Table) 06/08/19 06/08/19 06/09/19 Range/Units 15:40 22:52 03:29 APTT 65.5 H (22.0-30.0) sec Chloride 108 H (98-107) mmol/L Glucose 111 H (74-99) mg/dL HDL Cholesterol 37 L (40-60) mg/dL 06/09/19 Range/Units 05:34 APTT 67.9 H (22.0-30.0) sec Chloride (98-107) mmol/L Glucose (74-99) mg/dL HDL Cholesterol (40-60) mg/dL Thrombosis Risk Factor Assmnt - DVT/VTE Prophylaxis DVT/VTE Prophylaxis: Pharmacologic Prophylaxis ordered - Choose All That Apply Each Risk Factor Represents 2 Points: Age 61-74 years Thrombosis Risk Factor Assessment Total Risk Factor Score: 2 Thrombosis Risk Factor Assessment Level: Low Risk Assessment and Plan Plan: 1. Chest pain. Consult cardiology appreciated. Echocardiogram and stress echo ordered for tomorrow. Heparin drip was discontinued. Continue aspirin, Lipitor. Cardiology consult appreciated. 2. Hyperlipidemia. Continue atorvastatin. 3. Obstructive sleep apnea unable to tolerate CPAP. 4. Generalized anxiety disorder, stable. Patient placed as an observation status. Discharge plan: home Impression and plan of care have been directed as dictated by the signing physician. Penelope Nayak nurse practitioner acting as scribe for signing physician.
--- NOTE | 2019-06-09 13:36 | CONS ---
CONSULTATION Mrs. Yisel Edouard is a 73-year-old lady who used to see Dr. Melton more than 3 years ago. In March of 2016 she underwent a cardiac cath that was performed by Dr. Melton which revealed mild obstructive disease involving the proximal LAD. She had a dominant right coronary artery without significant disease and circumflex that was nondominant and disease-free and left ventricular systolic function was normal. Since then she has done fairly well. She also has history of hyperlipidemia. She has some amount of anxiety disorder as well. She came into the hospital with episode of what she describes as discomfort that started in the anterior aspect of the chest and radiated to the back and towards the right shoulder and then later on it got worse and remained in the center of the chest. This occurred when she was not doing any physical activity. She also had mild shortness of breath but no palpitations, syncope or near syncope. At the time of my evaluation, she is resting comfortably. She has no chest pain. Her symptoms have resolved. Her troponins are normal. However, on questioning she indicates to me that at home with activity she has shortness of breath and chest tightness which has increased of late and she is concerned about it. She takes 10 mg of atorvastatin and aspirin 81 mg daily. She is not a particularly very active person. She lost her in 2014. PAST MEDICAL HISTORY: 1. Sleep apnea syndrome. 2. Hyperlipidemia. 3. Osteoarthritis. She is status post cholecystectomy, hysterectomy, orthopedic surgery, tubal ligation. ALLERGIES: She is allergic to CYMBALTA. MEDICATIONS: Include Lipitor 10 mg daily, vitamin supplements, and aspirin 81 mg daily. PHYSICAL EXAMINATION: Blood pressure is 118/70, pulse rate is 60 per minute, regular HEENT unremarkable. Fundus was not examined by me. Neck is supple. There is no JVD. I do not hear a carotid bruit. There is no thyromegaly. Heart exam reveals S1, S2 heard normally. No rub, murmur or gallop. Lungs are clear. Abdomen is soft, nontender. Lower extremities reveal normal pulses. No edema. Central system is normal. EKG revealed sinus mechanism without any acute changes. LABORATORY DATA: Revealed unremarkable troponins. IMPRESSION: 1. Atypical chest pain. 2. Anxiety. 3. Hyperlipidemia. 4. Unremarkable cardiac cath more than 3 years ago. RECOMMENDATIONS: I am recommending that we increase activity, switch her from IV heparin to subcu heparin, perform a Lexiscan stress test tomorrow and echocardiogram and if these are normal she can be discharged. I discussed my thoughts in detail with the patient. Thank you very much for the consult. JAQUI / CARLOS: [id number] /
[2019-06-09 20:13] VITALS: RESP 18
[2019-06-10] MEDS: HEPARIN SODIUM,PORCINE 5,000 UNIT/ML 1 ML VIAL SQ SCH ×2 (00:27→10:49)
[2019-06-10] MEDS: NITROGLYCERIN OINT 1 INCH/GM PACKET TOPICAL SCH ×3 (00:27→10:49)
[2019-06-10] MEDS ORDERED: CAFFEINE CITRATE 60 MG/3 ML VIAL IV PRN (06:00)
[2019-06-10] MEDS ORDERED: AMINOPHYLLINE 500 MG/20 ML VIAL IV PRN (06:00)
[2019-06-10] MEDS ORDERED: SODIUM CHLORIDE 0.9% IV ONE (07:00)
[2019-06-10] MEDS ORDERED: DIPYRIDAMOLE IV ONE (07:00)
[2019-06-10] MEDS ORDERED: AMINOPHYLLINE 500 MG/20 ML VIAL IV ONE (09:45)
[2019-06-10] MEDS: ASPIRIN 325 MG TAB PO SCH (10:51)
[2019-06-10] MEDS: ATORVASTATIN 10 MG TAB PO SCH (10:51)
--- NOTE | 2019-06-10 11:00 | ECHOF ---
Referral Reason:chest pain MEASUREMENTS -------- HEIGHT: 160.0 cm WEIGHT: 72.1 kg BP: 94/60 RVIDd: 4.0 cm (< 3.3) IVSd: 1.0 cm (0.6 - 1.1) LVIDd: 3.9 cm (3.9 - 5.3) LVPWd: 1.1 cm (0.6 - 1.1) IVSs: 1.4 cm LVIDs: 2.9 cm LVPWs: 1.4 cm LA Diam: 3.4 cm (2.7 - 3.8) LAESV Index (A-L): 24.37 ml/m Ao Diam: 3.0 cm (2.0 - 3.7) AV Cusp: 1.8 cm (1.5 - 2.6) LA Diam: 3.6 cm (2.7 - 3.8) MV EXCURSION: 17.354 mm (> 18.000) MV EF SLOPE: 63 mm/s (70 - 150) EPSS: 0.2 cm MV E Marck: 0.64 m/s MV DecT: 294 ms MV A Marck: 0.92 m/s MV E/A Ratio: 0.70 AR PHT: 732 ms RAP: 5.00 mmHg RVSP: 32.66 mmHg TAPSE: 19.09 mm FINDINGS -------- Sinus rhythm. This was a technically good study. LV size, wall thickness and systolic function are normal, with an EF greater than 55%. The left minor tricular size is normal. The diastolic filling pattern is normal for the age of the patient 17.04. The right ventricle is normal in size. The left atrial size is normal. Normal LA size by volume 22+/-6 ml/m2. The right atrial size is normal. There is mild aortic regurgitation. Mild mitral annular calcification present. Mild mitral regurgitation is present. Mild tricuspid regurgitation present. Right ventricular systolic pressure is normal at < 35 mmHg. There is no evidence of pulmonary hypertension. There is no pulmonic regurgitation present. The aortic root size is normal. There is no pericardial effusion. CONCLUSIONS -------- 1. Sinus rhythm. 2. This was a technically good study. 3. LV size, wall thickness and systolic function are normal, with an EF greater than 55%. 4. The left ventricular size is normal. 5. The diastolic filling pattern is normal for the age of the patient 17.04 6. The right ventricle is normal in size. 7. The left atrial size is normal. 8. Normal LA size by volume 22+/-6 ml/m2. 9. The right atrial size is normal. 10. There is mild aortic regurgitation. 11. Mild mitral annular calcification present. 12. Mild mitral regurgitation is present. 13. Mild tricuspid regurgitation present. 14. Right ventricular systolic pressure is normal at < 35 mmHg. 15. There is no evidence of pulmonary hypertension. 16. There is no pulmonic regurgitation present. 17. The aortic root size is normal. 18. There is no pericardial effusion. ADJUNCT PROFESSOR OF LAW: Luz Marina Mckeon RDCS
--- NOTE | 2019-06-10 11:10 | NM ---
EXAMINATION TYPE: NM stress persantine cardiolit DATE OF EXAM: 06/10/2019 COMPARISON: NONE HISTORY: Chest pain and pressure with difficulty breathing, history of hypercholesterolemia and prior heart catheterization as well as family history of coronary artery disease. TECHNIQUE: After the intravenous administration of 9.5 mCi Tc 99m Sestamibi - Cardiolite resting SPE CT images acquired 45 minutes post injection. The patient received 41.5 mg Persantine, 25.3 mCi Tc 99m Sestamibi - Stress images obtained 35 minute s post injection FINDINGS: Review of stress and rest SPECT images demonstrates some diminished uptake inferior lateral wall on s tress and rest images mid segment level which old infarct cannot be excluded. No reversible ischemia is identified. Gated analysis shows overall ejection fraction of 73 %. IMPRESSION: No scintigraphic evidence for reversible ischemia.
[2019-06-10 11:34] VITALS: BP 137/62; PULSE 77; TEMP 97.9
--- NOTE | 2019-06-10 11:44 | EST ---
EXERCISE STRESS DATE OF SERVICE: 06/10/2019 AGE: 73 SEX: Female HT: 5'3" WT: 160 pounds PROTOCOL: Persantine Cardiolite STAGE: DURATION OF EXERCISE: HEART RATE REST: 62 BLOOD PRESSURE REST: 111/65 MAXIMUM HEART RATE ACHIEVED: 75 MAXIMUM BLOOD PRESSURE: 132/62 85% MPHR: 126 100% MPHR: 148 METS: INDICATIONS: Chest pressure. CLINICAL INFORMATION: Patient was given Persantine infusion over a period of 4 minutes. The peak heart rate of 75 was achieved. Maximum blood pressure of 132/62 mmHg was noted. Resting EKG shows normal sinus rhythm with normal PA interval and QRS duration and normal ST-T waves. No ST-segment depression suggestive of ischemia was noted. The results of the nuclear study will follow. JAQUI / CARLOS: [id number] /
--- NOTE | 2019-06-10 14:33 | P.PN ---
Subjective Progress Note Date: 06/10/19 This is a 73-year-old female who presented to the hospital with symptoms of chest discomfort, she was seen in consultation by Dr. Jayme Fernandes and recommended today to undergo a Persantine Cardiolite as well as an echocardiogram with Doppler study. Stress test was performed today which came back negative for any reversible ischemia and her LV function came back to be normal. From our perspective she should be able to be discharged home today to follow-up with Dr. Melton in the office post discharge. Objective - Vital Signs Vital signs: Vital Signs Temp 97.9 F 06/10/19 11:33 Pulse 77 06/10/19 12:00 Resp 18 06/10/19 11:33 BP 137/62 06/10/19 11:33 Pulse Ox 96 06/10/19 11:33 Intake & Output 06/09/19 06/10/19 06/10/19 18:59 06:59 18:59 Intake Total 480 Output Total 500 Balance -20 Weight 72.6 kg 72.4 kg 72.575 kg Intake: Oral 480 Output: Urine 500 Other: Voiding Method Toilet # Voids 1 - Exam PHYSICAL EXAMINATION: GENERAL: 73-year-old female in no acute distress at the time of my examination HEENT: Head is atraumatic, normocephalic. Pupils equal, round. Sclera anicteric. Conjunctiva are clear. Mucous membranes of the mouth are moist. Neck is supple. There is no elevated jugular venous pressure. No carotid bruit is heard. HEART EXAMINATION: Heart S1, S2 normal. No murmur or gallop heard. CHEST EXAMINATION: Lungs are clear to auscultation and precussion. No chest wall tenderness is noted on palpation or with deep breathing. ABDOMEN: Soft, nontender. Bowel sounds are heard. No organomegaly noted. EXTREMITIES: 2+ peripheral pulses with no evidence of peripheral edema and no calf tenderness noted. NEUROLOGIC patient is awake, alert and oriented 3 . . - Labs CBC & Chem 7: 06/08/19 15:40 06/08/19 15:40 Assessment and Plan Plan: Assessment and plan #1 atypical chest pain, status post Persantine Cardiolite stress test which is negative for any reversible ischemia, echo reveals normal LV function. #2 anxiety #3 hyperlipidemia #4 unremarkable cardiac cath morning 3 years ago Plan From our perspective patient may be able to be discharged home today, we'll make her a follow-up appointment in the office post discharge. DNP note has been reviewed, I agree with a documented findings and plan of care. Patient was seen and examined.
--- NOTE | 2019-06-10 14:59 | P.DS ---
Providers Date of admission: 06/08/19 16:47 Expected date of discharge: 06/10/19 Attending physician: Carmen Mendoza Consults: 06/08/19 16:47 Consult Physician Urgent Consulting Provider: [facility] Consult Reason/Comments: Unstable angina Do you want consulting provider notified?: Yes Primary care physician: Remberto Otto [facility] Course: This is a 73-year-old female patient of Dr. Otto with past medical history of hyperlipidemia, obstructive sleep apnea without CPAP. The patient states that she has not been feeling well and yesterday at 9:00 she developed chest pain and in general she was feeling very poorly. She states she had some shortness of breath when she walked from the car in the parking lot to the emergency center. She denies any history of myocardial infarction. She states the pain radiated to her back. She denies any sweats. She just felt lousy. Patient denies any chest pain at the time of evaluation. She thinks the resting made her pain better. She does have a history of panic attacks since her . Patient had a heart catheterization done by Dr. Melton in 2015 that revealed mild obstructive disease involving the proximal LAD. Normal left ventricle size and systolic function. Patient came into [facility] emergency center for evaluation. Vital signs were stable, CBC unremarkable. Creatinine 0.55, blood sugar 111. Troponin negative. Subsequently all 3 troponins have been negative. She was on heparin drip which has been discontinued. Patient was admitted to the cardiac stepdown unit and seen by cardiology with plan for echocardiogram and stress echocardiogram for tomorrow. Chest x-ray reveals minimal scarring at the left lung base unchanged. Normal heart. 06/10: Patient states that she is feeling well today. She denies having any chest pain. She underwent Persantine Cardiolite which is negative for reversible ischemia. Echocardiogram reveals EF of 55%, mild aortic reg urgitation, mild mitral regurgitation, mild tricuspid regurgitation, RVSP less than 35, no pulmonary hypertension, no pericardial effusion. Patient has been cleared by cardiology for discharge home with plan for follow-up with Dr. Melton. Patient will be discharged home today in stable condition. Discharge diagnoses: 1. Chest pain. Acute coronary syndrome ruled out. 2. Hyperlipidemia. 3. Obstructive sleep apnea unable to tolerate CPAP. 4. Generalized anxiety disorder, stable. Discharge plan: home Impression and plan of care have been directed as dictated by the signing physician. Penelope Nayak nurse practitioner acting as scribe for signing physician. Patient Condition at Discharge: Good Plan - Discharge Summary Discharge Rx Participant: No New Discharge Prescriptions: Continue Ergocalciferol [Vitamin D2 (DRISDOL)] 50,000 unit PO Q14D Atorvastatin [Lipitor] 10 mg PO DAILY Aspirin EC [Ecotrin Low Dose] 81 mg PO DAILY Discharge Medication List Atorvastatin [Lipitor] 10 mg PO DAILY 03/28/16 [History] Ergocalciferol [Vitamin D2 (DRISDOL)] 50,000 unit PO Q14D 03/28/16 [History] Aspirin EC [Ecotrin Low Dose] 81 mg PO DAILY 10/07/17 [History] Follow up Appointment(s)/Referral(s): Malinda Fernandes MD [STAFF PHYSICIAN] - 1 Week (Office will call with follow up appointment. ) Remberto Otto MD [Primary Care Provider] - 1 Week (Office will call with follow up appointment.) Patient Instructions/Handouts: Chest Pain (DC), Heart Healthy Diet (DC), Nuclear Stress Test (DC) Discharge Disposition: HOME SELF-CARE
== END 2019-06-10 14:17 | disposition home or self-care (01) ==
LOC: EC 15:15 → 3SCARD 16:47
PROVIDERS: ADMIT Internal Medicine; ATTEND Internal Medicine
DX: R07.89 Other chest pain (principal); R06.02 Shortness of breath; F41.1 Generalized anxiety disorder; E78.5 Hyperlipidemia, unspecified; G47.33 Obstructive sleep apnea (adult) (pediatric); E78.00 Pure hypercholesterolemia, unspecified; M19.90 Unspecified osteoarthritis, unspecified site; F32.9 Major depressive disorder, single episode, unspecified; F41.0 Panic disorder [episodic paroxysmal anxiety]; Z82.49 Family history of ischemic heart disease and other diseases of the circulatory system; Z79.82 Long term (current) use of aspirin; Z79.899 Other long term (current) drug therapy; Z88.8 Allergy status to other drugs, medicaments and biological substances; Z90.49 Acquired absence of other specified parts of digestive tract; Z90.710 Acquired absence of both cervix and uterus; Z80.8 Family history of malignant neoplasm of other organs or systems
CPT/HCPCS: 96376; 96365; 99291; 36415; 93005; 93017; 93306; 80061; 80053; 83735; 84484 ×2; 85025; 85610; 85730 ×2; 71046; 78452; G0378 ×3; A9500; J1644 ×3; J0280

== ENCOUNTER 2020-08-18 22:30 | Inpatient (IN) | payer BC, MEDICARE ==
--- NOTE | 2020-08-18 22:53 | ED ---
Psych HPI - General Chief Complaint: Psychiatric Symptoms Stated Complaint: Mental health Time Seen by Provider: 08/18/20 22:41 Source: patient Mode of arrival: ambulatory - History of Present Illness Initial Comments: This patient is 74-year-old woman with history of long-standing depression who notes that her mood has worsened over the past 2 weeks and now she is having persistent thoughts of suicide. MD Complaint: suicidal ideation, feels depressed -: week(s) Associated Psychiatric Symptoms: depression, suicidal ideation History of same: Yes Quality: getting worse Improves With: none Worsens With: none Associated Symptoms: denies other symptoms - Related Data Home Medications Medication Instructions Recorded Confirmed Atorvastatin [Lipitor] 10 mg PO DAILY 03/28/16 06/08/19 Ergocalciferol [Vitamin D2 50,000 unit PO Q14D 03/28/16 06/08/19 (DRISDOL)] Aspirin EC [Ecotrin Low Dose] 81 mg PO DAILY 10/07/17 06/08/19 Allergies Allergy/AdvReac Type Severity Reaction Status Date / Time duloxetine [From Cymbalta] Allergy Severe Anaphylaxis Verified 08/18/20 22:39 Review of Systems ROS Statement: Those systems with pertinent positive or pertinent negative responses have been documented in the HPI. ROS Other: All systems not noted in ROS Statement are negative. Constitutional: Denies: fever, chills Respiratory: Denies: cough, dyspnea Cardiovascular: Denies: chest pain, palpitations, syncope Gastrointestinal: Denies: abdominal pain, nausea, vomiting, diarrhea Genitourinary: Denies: dysuria, hematuria Musculoskeletal: Denies: back pain Skin: Denies: rash Neurological: Denies: headache, weakness, numbness Psychiatric: Reports: depression, suicidal thoughts. Denies: auditory hallucinations, visual hallucinations, homicidal thoughts Past Medical History Past Medical History: Hyperlipidemia, Osteoarthritis (OA), Sleep Apnea/CPAP/BIPAP Additional Past Medical History / Comment(s): no cpap after weight loss, hemorrhoids, History of Any Multi-Drug Resistant Organisms: None Reported Past Surgical History: Cholecystectomy, Hysterectomy, Orthopedic Surgery, Tubal Ligation Additional Past Surgical History / Comment(s): left knee arthroscopy,sinus surgery, oral surgery, dennis cataracts Past Anesthesia/Blood Transfusion Reactions: Previous Problems w/ Anesthesia, Motion Sickness Additional Past Anesthesia/Blood Transfusion Reaction / Comment(s): oxygen level dropped and heartrate dropped low-ended up in ICU x 2-(general anesthesia) Past Psychological History: Anxiety, Depression Smoking Status: Never smoker Past Alcohol Use History: None Reported Past Drug Use History: None Reported - Past Family History Sister(s) Family Medical History: Cancer Additional Family Medical History / Comment(s): Patient has one sister that at age 64 from brain cancer and 1 sister with atrial fibrillation. Mother Family Medical History: Dementia Additional Family Medical History / Comment(s): Mother has history of atrial fibrillation and Parkinson Father Family Medical History: Myocardial Infarction ([place]) Additional Family Medical History / Comment(s): Father has history of myocardial infarction while in his 80s. Daughter(s) Family Medical History: Cancer Additional Family Medical History / Comment(s): Daughter had congenital heart disease with open heart surgery at age 13. General Exam Limitations: no limitations General appearance: alert, in no apparent distress Head exam: Present: atraumatic, normocephalic Eye exam: Present: normal appearance. Absent: scleral icterus, conjunctival injection ENT exam: Present: normal oropharynx Respiratory exam: Present: normal lung sounds bilaterally. Absent: respiratory distress, wheezes, rales, rhonchi, stridor Cardiovascular Exam: Present: regular rate, normal rhythm, normal heart sounds. Absent: systolic murmur, diastolic murmur, rubs, gallop GI/Abdominal exam: Present: soft. Absent: distended, tenderness, guarding, rebound, rigid, mass Extremities exam: Present: normal inspection, normal capillary refill. Absent: pedal edema, calf tenderness Neurological exam: Present: alert Psychiatric exam: Present: depressed, suicidal ideation. Absent: agitated, anxious, flat affect, manic, homicidal ideation Skin exam: Present: warm, dry, intact, normal color. Absent: rash Course Vital Signs 08/18/20 22:33 Temperature 98.4 F Pulse Rate 90 Respiratory 18 Rate Blood Pressure 135/79 O2 Sat by Pulse 96 Oximetry Disposition Clinical Impression: Mood disorder Disposition: ADMITTED IP TO THIS HOSP Condition: Fair Is patient prescribed a controlled substance at d/c from ED?: No Referrals: Remberto Otto MD [Primary Care Provider] - 1-2 days
[2020-08-19] MEDS ORDERED: MAGNESIUM HYDROXIDE 2,400 MG/10 ML CUP PO PRN (03:08)
[2020-08-19] MEDS ORDERED: haloperidoL 1 MG TAB PO PRN (03:14)
[2020-08-19] MEDS ORDERED: HALOPERIDOL LACTATE 5 MG/ML 1 ML VIAL IM PRN (03:15)
[2020-08-19 03:44] LABS: Appearance,Urine Clear (Clear); Bilirubin,Urine Negative (Negative); Blood,Urine Negative (Negative); Color,Urine Yellow; Glucose,Urine (UA) Negative (Negative); Ketones,Urine 2+ (Negative); Leukocyte Esterase,Urine Large (Negative); Mucus,Urine Few /hpf; Nitrite,Urine Negative (Negative); PH, Urine 6.5 (5.0-8.0); Protein,Urine Negative (Negative); RBC,Urine 3 /hpf (0-5); Squamous Epithelial Cell,Urine 2 /hpf (0-4); WBC,Urine 53 /hpf (0-5)
[2020-08-19 03:56] LABS: Amphetamine Screen,Urine Not Detected (NotDetected); Barbiturate Screen,Urine Not Detected (NotDetected); Benzodiazepines Screen,Urine Not Detected (NotDetected); Cocaine Screen,Urine Not Detected (NotDetected); Methadone Screen, Urine Not Detected (NotDetected); Opiate Screen,Urine Not Detected (NotDetected); Oxycodone Screen, Urine Not Detected (NotDetected); Phencyclidine Screen,Urine Not Detected (NotDetected); Tricyclic Antidepressant,Urine Not Detected (NotDetected); Urn Cannabinoid Scrn Detected (NotDetected)
[2020-08-19 08:23] LABS: Basophils % (A) 0 %; Eosinophils % (A) 1 %; HCT 43.8 % (34.0-46.0); HGB 14.4 gm/dL (11.4-16.0); Lymphocytes # (A) 1.5 k/uL (1.0-4.8); Lymphocytes % (A) 39 %; MCH 32.4 pg (25.0-35.0); MCHC 32.8 g/dL (31.0-37.0); MCV 98.9 fL (80.0-100.0); Mean Platelet Volume 7.4; Monocytes # (A) 0.2 k/uL (0-1.0); Monocytes % (A) 6 %; Neutrophils % (A) 51 %; Platelet Count 180 k/uL (150-450); RBC 4.43 m/uL (3.80-5.40); RDW 12.9 % (11.5-15.5); WBC 3.9 k/uL (3.8-10.6)
[2020-08-19 08:41] LABS: ALT 11 U/L (4-34); AST 21 U/L (14-36); African American GFR (CKD) >90 (>60 ml/min/1.73 sqM); Albumin 3.7 g/dL (3.5-5.0); Alkaline Phosphatase 60 U/L (38-126); Anion Gap 2 mmol/L; Bilirubin, Delta 0.3 mg/dL (0.0-0.2); Bilirubin,Unconjugated 0.8 mg/dL (0.0-1.1); Blood Urea Nitrogen 12 mg/dL (7-17); Carbon Dioxide 30 mmol/L (22-30); Chloride 107 mmol/L (98-107); Cholesterol 154 mg/dL (<200); Glucose 96 mg/dL (74-99); HDL Cholesterol 45 mg/dL (40-60); LDL Cholesterol,Calculated 91 mg/dL (0-99); Non-African American GFR(CKD) >90 (>60 ml/min/1.73 sqM); Potassium 3.7 mmol/L (3.5-5.1); Sodium 139 mmol/L (137-145); Total Bilirubin 1.1 mg/dL (0.2-1.3); Total Protein 6.5 g/dL (6.3-8.2); Triglycerides 92 mg/dL (<150)
[2020-08-19] MEDS: ATORVASTATIN 10 MG TAB PO SCH (08:44)
[2020-08-19] MEDS: ASPIRIN 81 MG PO SCH (08:44)
[2020-08-19] MEDS ORDERED: DULoxetine HCL 20 MG CAPSULE.DR PO SCH (10:30)
--- NOTE | 2020-08-19 10:35 | P.HP ---
Psychiatric H&P - . H&P Date: 08/19/20 History & Physical: Allergies Allergy/AdvReac Type Severity Reaction Status Date / Time duloxetine From Cymbalta Allergy Severe Anaphylaxis Verified 08/19/20 03:24 Vital Signs Temp 98.2 F 08/19/20 04:11 Pulse 71 08/19/20 04:11 Resp 15 08/19/20 04:11 BP 107/65 08/19/20 04:11 Pulse Ox 95 08/19/20 04:11 Intake & Output 08/18/20 08/19/20 08/19/20 18:59 06:59 18:59 Weight 70.08 kg Laboratory Last Values WBC 3.9 k/uL (3.8-10.6) 08/19/20 07:26 RBC 4.43 m/uL (3.80-5.40) 08/19/20 07:26 Hgb 14.4 gm/dL (11.4-16.0) 08/19/20 07:26 Hct 43.8 % (34.0-46.0) 08/19/20 07:26 MCV 98.9 fL (80.0-100.0) 08/19/20 07:26 MCH 32.4 pg (25.0-35.0) 08/19/20 07:26 MCHC 32.8 g/dL (31.0-37.0) 08/19/20 07:26 RDW 12.9 % (11.5-15.5) 08/19/20 07:26 Plt Count 180 k/uL (150-450) 08/19/20 07:26 MPV 7.4 08/19/20 07:26 Neutrophils % 51 % 08/19/20 07:26 Lymphocytes % 39 % 08/19/20 07:26 Monocytes % 6 % 08/19/20 07:26 Eosinophils % 1 % 08/19/20 07:26 Basophils % 0 % 08/19/20 07:26 Neutrophils # 2.0 k/uL (1.3-7.7) 08/19/20 07:26 Lymphocytes # 1.5 k/uL (1.0-4.8) 08/19/20 07:26 Monocytes # 0.2 k/uL (0-1.0) 08/19/20 07:26 Eosinophils # 0.0 k/uL (0-0.7) 08/19/20 07:26 Basophils # 0.0 k/uL (0-0.2) 08/19/20 07:26 Sodium 139 mmol/L (137-145) 08/19/20 07:26 Potassium 3.7 mmol/L (3.5-5.1) 08/19/20 07:26 Chloride 107 mmol/L (98-107) 08/19/20 07:26 Carbon Dioxide 30 mmol/L (22-30) 08/19/20 07:26 Anion Gap 2 mmol/L 08/19/20 07:26 BUN 12 mg/dL (7-17) 08/19/20 07:26 Creatinine 0.60 mg/dL (0.52-1.04) 08/19/20 07:26 Est GFR (CKD-EPI)AfAm >90 (>60 ml/min/1.73 sqM) 08/19/20 07:26 Est GFR (CKD-EPI)NonAf >90 (>60 ml/min/1.73 sqM) 08/19/20 07:26 Glucose 96 mg/dL (74-99) 08/19/20 07:26 Calcium 9.0 mg/dL (8.4-10.2) 08/19/20 07:26 Total Bilirubin 1.1 mg/dL (0.2-1.3) 08/19/20 07:26 Conjugated Bilirubin 0.0 mg/dL (0.0-0.3) 08/19/20 07:26 Unconjugated Bilirubin 0.8 mg/dL (0.0-1.1) 08/19/20 07:26 Delta Bilirubin 0.3 mg/dL (0.0-0.2) H 08/19/20 07:26 AST 21 U/L (14-36) 08/19/20 07:26 ALT 11 U/L (4-34) 08/19/20 07:26 Alkaline Phosphatase 60 U/L (38-126) 08/19/20 07:26 Total Protein 6.5 g/dL (6.3-8.2) 08/19/20 07:26 Albumin 3.7 g/dL (3.5-5.0) 08/19/20 07:26 Triglycerides 92 mg/dL (<150) 08/19/20 07:26 Cholesterol 154 mg/dL (<200) 08/19/20 07:26 LDL Cholesterol, Calc 91 mg/dL (0-99) 08/19/20 07:26 HDL Cholesterol 45 mg/dL (40-60) 08/19/20 07:26 TSH 2.140 mIU/L (0.465-4.680) 08/19/20 07:26 Urine Color Yellow 08/19/20 03:25 Urine Appearance Clear (Clear) 08/19/20 03:25 Urine pH 6.5 (5.0-8.0) 08/19/20 03:25 Ur Specific Park 1.020 (1.001-1.035) 08/19/20 03:25 Urine Protein Negative (Negative) 08/19/20 03:25 Urine Glucose (UA) Negative (Negative) 08/19/20 03:25 Urine Ketones 2+ (Negative) H 08/19/20 03:25 Urine Blood Negative (Negative) 08/19/20 03:25 Urine Nitrite Negative (Negative) 08/19/20 03:25 Urine Bilirubin Negative (Negative) 08/19/20 03:25 Urine Urobilinogen 2.0 mg/dL (<2.0) 08/19/20 03:25 Ur Leukocyte Esterase Large (Negative) H 08/19/20 03:25 Urine RBC 3 /hpf (0-5) 08/19/20 03:25 Urine WBC 53 /hpf (0-5) H 08/19/20 03:25 Ur Squamous Epith Cells 2 /hpf (0-4) 08/19/20 03:25 Urine Mucus Few /hpf (None) H 08/19/20 03:25 Urine Opiates Screen Not Detected (NotDetected) 08/19/20 03:25 Ur Oxycodone Screen Not Detected (NotDetected) 08/19/20 03:25 Urine Methadone Screen Not Detected (NotDetected) 08/19/20 03:25 Ur Propoxyphene Screen Not Detected (NotDetected) 08/19/20 03:25 Ur Barbiturates Screen Not Detected (NotDetected) 08/19/20 03:25 U Tricyclic Antidepress Not Detected (NotDetected) 08/19/20 03:25 Ur Phencyclidine Scrn Not Detected (NotDetected) 08/19/20 03:25 Ur Amphetamines Screen Not Detected (NotDetected) 08/19/20 03:25 U Methamphetamines Scrn Not Detected (NotDetected) 08/19/20 03:25 U Benzodiazepines Scrn Not Detected (NotDetected) 08/19/20 03:25 Urine Cocaine Screen Not Detected (NotDetected) 08/19/20 03:25 U Marijuana (THC) Screen Detected (NotDetected) H 08/19/20 03:25 Coronavirus (PCR) Not Detected (Not Detectd) 08/19/20 03:10 08/19/20 10:11 IDENTIFYING DATA: Patient is a 74-year-old female who currently lives in her house with her grandson and his girlfriend and is . HPI: Patient presented to the hospital yesterday and was apparently brought in by her daughter for depression and suicidal thoughts. Patients UDS was positive for THC. Patient has not had a psychiatric admission in the past or mental health history. Patient was admitted to the mental health floor and evaluated this morning and appeared to be exhibiting poor hygiene and grooming and poor eye contact. She claimed to be feeling overwhelmed spoke a lot about her self- hate and feeling worthless and helpless. She claims that she was "going to take my life yesterday" and states that she instead called her daughter and told her about it who brought her into the hospital. She states that she is dealing with several stressors in her life and believes that her life is a "mess" and that she feels she cannot take care of herself. She states that her daughter and her grandson have been slowly taking her money over time. She believes that her son is also an alcoholic and using drugs and she feels that she cannot trust him or talk to him any longer. She claims that her grandson has been "ruining my yard" and moving junk and destroying things and not cleaning it up which is affecting her. She states that she was having thoughts of wanting to either jump in the river and drown herself or overdose on medications at home however believes that "I just can't do it". She admits to chronic depression and suicidal thoughts however no active suicidal thoughts at this time intent or plan. She claims that she has a poor appetite and poor sleep. Patient denies any suicidal or homicidal ideations intent or plan. At this time patient denies any auditory or visual hallucinations. Patient denies any flight of ideas racing thoughts and increased in goal directed behavior. Patient admits to using marijuana frequently however denies any cigarettes or alcohol. PAST PSYCHIATRIC HISTORY: Patient states that she has a history of depression. She claims that she has never been on an antidepressant in the past however he used to take Xanax after her 5 years ago. Patient denies any previous psychiatric hospitalizations. Patient denies any psychiatric outpatient follow-up. She states that she overdosed on her medications in October 2019 however did not seek treatment afterwards. PMH: Osteoarthritis, obstructive sleep apnea, hyperlipidemia ALLERGIES: as per EMR CHEMICAL DEPENDENCY HISTORY: as per HPI FAMILY PSYCHIATRIC/SUBSTANCE USE HISTORY: She states that her first cousin committed suicide. SOCIAL HISTORY: Patient was born and raised in [place]. She states that she has 2 kids, and currently lives with her grandson, his girlfriend in her house and states that she is retired from working in the formerly [employer], later [employer] at different offices. She is currently . She states that she completed high school and did one year of college at [employer] MENTAL STATUS EXAM: General Appearance: Patient appears to be then, older than stated age is alert, directable, and attempts to cooperate. Patient appears to have poor hygiene and grooming. Poor eye contact. Behavior: Patient is seated without any agitated behavior. Upset and frustrated. Speech: Patient's speech is fluent and nonpressured. Mood/Affect: Patient reports their mood is depressed, affect is congruent and constricted. Suicidality/Homicidality: Patient denies having any homicidal ideation intent or plan. Denies any suicidal ideations intent or plan Perceptions: Patient denies any visual hallucinations and denies any auditory hallucinations Though content/process: Patient is perseverating on her stressors, tangential/circumstantial. Logical. Memory and concentration: AOX3, grossly intact for the purposes of this session. Can spell "WORLD" backwards Judgment and insight: poor STRENGTHS/WEAKNESSES: strength is that patient is resilient. Weakness is that patient is impulsive and has poor social support INTELLECT: average IMPRESSIONS: Major depressive disorder, without psychotic features Cannabis use disorder PLAN: -Patient is admitted under voluntary status to [facility] for stabilization of psychiat jodie symptoms and safety. Patient has signed adult voluntary form and medication consent and is placed in patient's chart. -Medications : Will start patient on cymbalta 20mg daily for mood/anxiety, re ranjana 7.5mg qhs for mood/insomnia/appetite. -Haldol PRN for agitation/aggression. prn tylenol and ibuprofen for pain. -Patient was informed of the risks, benefits and side effects of the medication and patient verbally consented to taking the medications. Patient signed med consent form and was placed in chart. -Internal Medicine consult to perform medical evaluation and physical. -NRT - not needed as patient does not smoke -SW on board for discharge planning. Encourage patient to participate in groups to work on coping skills.
[2020-08-19] MEDS: FLUoxetine HCL 20 MG CAP PO SCH (12:05)
[2020-08-19] MEDS: MAG HYDROX/AL HYDROX/SIMETH 30 ML CUP PO PRN (12:07)
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
[2020-08-19 14:31] LABS: Hemoglobin A1C 5.4 % (4.0-6.0)
[2020-08-19] MEDS: ACETAMINOPHEN TAB 325 MG TAB PO PRN ×2 (17:50→20:38)
[2020-08-19] MEDS: MIRTAZAPINE 15 MG TAB PO SCH (20:38)
[2020-08-20 06:54] VITALS: RESP 16
[2020-08-20] MEDS: ASPIRIN 81 MG PO SCH (08:38)
[2020-08-20] MEDS: FLUoxetine HCL 20 MG CAP PO SCH (08:38)
[2020-08-20] MEDS: ATORVASTATIN 10 MG TAB PO SCH (08:38)
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
[2020-08-20] MEDS: ACETAMINOPHEN TAB 325 MG TAB PO PRN (12:09)
[2020-08-20 14:58] LABS: Appearance,Urine Clear (Clear); Bilirubin,Urine Negative (Negative); Blood,Urine Negative (Negative); Color,Urine Yellow; Glucose,Urine (UA) Negative (Negative); Hyaline Casts,Urine 1 /lpf (0-2); Ketones,Urine Negative (Negative); Leukocyte Esterase,Urine Small (Negative); Mucus,Urine Many /hpf; Nitrite,Urine Negative (Negative); PH, Urine 6.5 (5.0-8.0); Protein,Urine Negative (Negative); RBC,Urine 1 /hpf (0-5); Specific Gravity,Urine 1.013 (1.001-1.035); Squamous Epithelial Cell,Urine <1 /hpf (0-4); Urobilinogen,Urine <2.0 mg/dL (<2.0); WBC,Urine 3 /hpf (0-5)
[2020-08-20] MEDS: MIRTAZAPINE 15 MG TAB PO SCH (20:40)
[2020-08-21] MEDS: ASPIRIN 81 MG PO SCH (08:22)
[2020-08-21] MEDS: ATORVASTATIN 10 MG TAB PO SCH (08:22)
[2020-08-21] MEDS ORDERED: FLUoxetine HCL 20 MG CAP PO SCH (09:00)
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
[2020-08-21] MEDS: ONDANSETRON 4 MG TAB PO PRN (10:54)
[2020-08-21] MEDS: IBUPROFEN 600 MG TAB PO PRN (10:58)
[2020-08-21] MEDS: ACETAMINOPHEN TAB 325 MG TAB PO PRN (16:32)
[2020-08-21] MEDS: MIRTAZAPINE 15 MG TAB PO SCH (20:44)
[2020-08-21] MEDS: MELATONIN 3 MG TABLET PO SCH (20:44)
[2020-08-22] MEDS: FLUoxetine HCL 10 MG CAP PO SCH (09:04)
[2020-08-22] MEDS: ATORVASTATIN 10 MG TAB PO SCH (09:04)
[2020-08-22] MEDS: ASPIRIN 81 MG PO SCH (09:04)
[2020-08-22] MEDS: IBUPROFEN 600 MG TAB PO PRN (13:37)
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
[2020-08-22] MEDS: MIRTAZAPINE 15 MG TAB PO SCH (20:49)
[2020-08-22] MEDS: MELATONIN 3 MG TABLET PO SCH (20:49)
[2020-08-23] MEDS: ASPIRIN 81 MG PO SCH (08:55)
[2020-08-23] MEDS: FLUoxetine HCL 10 MG CAP PO SCH (08:56)
[2020-08-23] MEDS: ATORVASTATIN 10 MG TAB PO SCH (08:56)
[2020-08-23] MEDS: ONDANSETRON 4 MG TAB PO PRN (12:05)
--- NOTE | 2020-08-23 14:16 | PN ---
PROGRESS NOTE DATE OF SERVICE: 08/23/2020 CHIEF COMPLAINT: The patient was admitted for depression, suicide thoughts and poor self care. INTERVAL HISTORY: Patient has been doing fair. She had a quiet day yesterday. She comes out in the day areas some. She generally keeps to herself. She did attend one group yesterday. She said she slept fairly well last night. Today she has been up. She attended group this morning. She said she had a little bit of stomach upset before she took her Prozac though had not noted any since then. She says she has not had any nausea. Overall, she feels that she is tolerating the medicine without too much difficulty. She seems to have a little better outlook today. She notes that she talked to her daughter who lives down state. The daughter is the mother of the grandson that is living with her. She said that the daughter was making an effort to try to help the grandson be more compliant with the home situation. It is noted that the patient was less focused on the stress in the family compared to how she talked yesterday. She tolerates psychotropic medications. MENTAL STATUS: Patient sat with a little restlessness. She gave fairly good eye contact. She answered questions with brief responses. Her thoughts were clear. Her affect was somewhat blunted, her mood down though not clearly depressed. She did not appear to be significantly distressed. There was no indication of thought disorder. She had no thoughts of harm to self or others. Cognition was clear. ASSESSMENT: I will continue the current diagnosis and treatment plan. I will continue psychotropic medications the same. I reviewed medication issues with the patient including indications, potential side effects and treatment strategy. I reviewed issues relating to the time course for response to medications. She may need to be titrated up on Prozac and I would anticipate any side effects relating to higher doses of her medications would be minimal now that she seems to be making a reasonable adjustment to the medications. I discussed discharge planning issues. The patient understands that the social economist will be working with her on Monday to set up followup and that she understands Dr. Rosario anticipated discharge "early in the week." We will focus on stabilization and discharge planning. MMODL / IJN: [id number] /
[2020-08-23] MEDS: MAG HYDROX/AL HYDROX/SIMETH 30 ML CUP PO PRN (16:42)
[2020-08-23] MEDS: MELATONIN 3 MG TABLET PO SCH (21:01)
[2020-08-23] MEDS: MIRTAZAPINE 15 MG TAB PO SCH (21:01)
[2020-08-24] MEDS: FLUoxetine HCL 10 MG CAP PO SCH (08:44)
[2020-08-24] MEDS: ATORVASTATIN 10 MG TAB PO SCH (08:44)
[2020-08-24] MEDS: ASPIRIN 81 MG PO SCH (08:44)
[2020-08-24] MEDS ORDERED: FLUoxetine HCL 10 MG CAP PO STA (10:26)
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
[2020-08-24] MEDS: ACETAMINOPHEN TAB 325 MG TAB PO PRN (12:02)
[2020-08-24] MEDS: IBUPROFEN 600 MG TAB PO PRN (16:46)
[2020-08-24] MEDS: MIRTAZAPINE 15 MG TAB PO SCH (20:39)
[2020-08-24] MEDS: MELATONIN 3 MG TABLET PO SCH (20:39)
[2020-08-25] MEDS: ASPIRIN 81 MG PO SCH (08:42)
[2020-08-25] MEDS: FLUoxetine HCL 20 MG CAP PO SCH (08:42)
[2020-08-25] MEDS: ATORVASTATIN 10 MG TAB PO SCH (08:43)
--- NOTE | 2020-08-25 10:28 | P.PN ---
Progress Note - Text Progress Note Date: 08/25/20 Interval History: Patient was seen lying in her bed this morning and was directable and agreeable to speak with caption writer. Patient claims that she feels mildly better today as she was able to speak with her sister over the phone. She states that she will be able to stay with her for the time being. She continues to speak about vague suicidal thoughts and also hopelessness and continues to perseverate on her social situation. She believes that her grandson may "put his hands on me" if she tries to evict him. Patient did not endorse any specific suicidal plan or intent today. She claims that she feels the Prozac has been helping her mood and anxiety. She claims that she was able to sleep well last night approximately 5-6 hours. She spoke briefly about an assistant district attorney that she wishes to contact a help her however she is unsure if this will happen within the next few days due to the holidays. She states that she has been trying to go to groups and work on her coping skills and also her emotions. At this time patient denies any homical ideations, intent or plan. Patient denies any auditory, visual hallucinations and denies any paranoia or delusions. Mental Status Exam: General Appearance: Patient appears to be thin, older than stated age is alert, directable, and attempts to cooperate. Patient appears to have fair hygiene and grooming. Poor eye contact. Behavior: Patient is seated without any agitated behavior. Speech: Patient's speech is fluent and nonpressured. Mood/Affect: Patient reports their mood is depressed, improving mildly, affect is congruent and constricted. Suicidality/Homicidality: Patient denies having any homicidal ideation intent or plan. Admits to suicidal thoughts, no current plan while in the hospital, suicidal thoughts or apparently decreasing in severity. Perceptions: Patient denies any visual hallucinations and denies any auditory hallucinations Though content/process: Patient is tangential/circumstantial. Logical. Rambles. She perseverates on her social situation and finances. Memory and concentration: AOX3, grossly intact for the purposes of this session Judgment and insight: poor, improving mildly Assessment Major depressive disorder, without psychotic features Cannabis use disorder Plan: -Patient is admitted under voluntary status to [facility] for stabilization of psychiatric symptoms and safety. -Medications : Will continue with prozac to 40mg daily for mood/anxiety, continue with Remeron 15mg qhs for mood/insomnia/appetite. continue with melatonin 3 mg qhs for insomnia/appetite and mood. -Haldol PRN for agitation/aggression. prn tylenol and ibuprofen for pain. zofran prn for nausea/vomitting. -NRT - not needed as patient does not smoke -SW on board for discharge planning. Encourage patient to participate in groups to work on coping skills. SW will be assisting patient today with discharge planning once again and will arrange for patient to be discharged into care of her sister. Patient to call casino cage supervisor today to work on eviction process. We'll look into possibly getting patient a friend/family member or police escort to gather her belongings once she is discharged. If patient does well overnight then most likely discharge tomorrow.
[2020-08-25] MEDS ORDERED: MELATONIN 3 MG TABLET PO SCH (21:00)
[2020-08-25] MEDS: IBUPROFEN 600 MG TAB PO PRN (21:21)
[2020-08-25] MEDS: MIRTAZAPINE 15 MG TAB PO SCH (21:22)
[2020-08-26 06:43] VITALS: BP 132/60; PULSE 66; TEMP 97.8
[2020-08-26] MEDS: FLUoxetine HCL 20 MG CAP PO SCH (08:39)
[2020-08-26] MEDS: ATORVASTATIN 10 MG TAB PO SCH (08:39)
[2020-08-26] MEDS: ASPIRIN 81 MG PO SCH (08:39)
[2020-08-26] MEDS: IBUPROFEN 600 MG TAB PO PRN (09:50)
--- NOTE | 2020-08-26 10:04 | P.DS ---
Providers Date of admission: 08/19/20 03:04 Expected date of discharge: 08/26/20 Attending physician: Oni Rosario MD Consults: 08/19/20 03:08 Consult Physician Routine Consulting Provider: Remberto Otto Reason/Comments: For H & P for Medical Follow Up Do you want consulting provider notified?: Yes, Notify in am Primary care physician: Remberto Otto - Discharge Diagnosis(es) (1) Major depressive disorder without psychotic features Current Visit: Yes Status: Acute Priority: High (2) Cannabis use disorder, mild, abuse Current Visit: Yes Status: Acute Priority: Low Hospital Course: Admission HPI: Admission note was completed by board writer "Patient is a 74-year-old female who currently lives in her house with her grandson and his girlfriend and is . Patient presented to the hospital yesterday and was apparently brought in by her daughter for depression and suicidal thoughts. Patients UDS was positive for THC. Patient has not had a psychiatric admission in the past or mental health history. Patient was admitted to the mental health floor and evaluated this morning and appeared to be exhibiting poor hygiene and grooming and poor eye contact. She claimed to be feeling overwhelmed spoke a lot about her self-hate and feeling worthless and helpless. She claims that she was "going to take my life yesterday" and states that she instead called her daughter and told her about it who brought her into the hospital. She states that she is dealing with several stressors in her life and believes that her life is a "mess" and that she feels she cannot take care of herself. She states that her daughter and her grandson have been slowly taking her money over time. She believes that her son is also an alcoholic and using drugs and she feels that she cannot trust him or talk to him any longer. She claims that her grandson has been "ruining my yard" and moving junk and destroying things and not cleaning it up which is affecting her. She states that she was having thoughts of wanting to either jump in the river and drown herself or overdose on medications at home however believes that "I just can't do it". She admits to chronic depression and suicidal thoughts however no active suicidal thoughts at this time intent or plan. She claims that she has a poor appetite and poor sleep. Patient denies any suicidal or homicidal ideations intent or plan. At this time patient denies any auditory or visual hallucinations. Patient denies any flight of ideas racing thoughts and increased in goal directed behavior. Patient admits to using marijuana frequently however denies any cigarettes or alcohol." Hospital course: Upon admission to the unit patient was initially depressed and suicidal. Patient was however directable and agreeable to commence treatment and signed adult voluntary form. Patient got along well with other patients on the unit and followed unit protocol. Patient was compliant with the medications throughout hospital course. Patient was started on Prozac and titrated up to a dose of 40 mg daily for mood/anxiety. Patient was also started on Remeron and titrated up to a dose of 50 mg daily at bedtime for mood/insomnia/appetite. Patient was also started on melatonin 3 mg daily at bedtime for insomnia. Patient did feel nauseous after her Prozac was increased initially and required Zofran which had helped. Patient spoke of her stressors and engaged in therapy both group and individual. Patient was also seen by medical team for history and physical exam. Throughout the course of the hospitalization patient gradually improved with regards to mood, anxiety, sleep and became more future oriented with improved insight and judgment. On the day of discharge patient denied any suicidal or homicidal ideations intent or plan denied any auditory or visual hallucinations. Patient endorsed wanting to live for her family and for God. The patient denied any access to guns or weapons. Patient denied any paranoia and did not endorse any delusions. Patient does not have a significant history of substance abuse however was counseled on abstaining from all substances including alcohol and marijuana. Patient was also counseled on the medications and need for regular compliance and was encouraged to follow-up with their outpatient appointment for mental health and also for primary care. Prior to discharge a family meeting will be arranged by social welfare clerk to answer any questions and ensure safety upon discharge. family day care worker was able to reach out to patient's sister who is willing to let patient stay with her while she is going to file for eviction of her grandson from her house. family day care worker also will help arrange for a police escort to the patient's house to allow for the patient to collect her belongings safely in the presence of her grandson and daughter. Mental status exam: General Appearance: Patient appears to be stated age is alert, pleasant, and cooperative. Patient is in no acute distress and has improved hygiene and grooming Behavior: Patient is calmly seated without any agitated behavior. Speech: Patient's speech is fluent and nonpressured. Mood/Affect: Patient reports their mood is "much better", affect is congruent Suicidality/Homicidality: Patient denies having any suicidal or homicidal ideation intent or plan. Perceptions: Patient denies any auditory or visual hallucinations. Though content/process: There is no evidence of any delusional thought content and thought process is linear and goal-directed. more future oriented. Rambles at times. Memory and concentration: AOX3, grossly intact for the purposes of this session. Can spell "WORLD" backwards correctly. Judgment and insight: improved with guarded prognosis Impression: Major depressive disorder, without psychotic features Cannabis use disorder Plan: -Continue with discharge today as patient has improved and stabilized psychiatrically and is not currently an imminent threat to herself and/or others. -Continue medications: Continue with Prozac 40 mg daily for mood/anxiety, Remeron 15 mg daily at bedtime for mood/insomnia/appetite, melatonin 3 mg daily at bedtime for insomnia. -Patient was counseled on the need for medication compliance and appropriate follow-up at mental health and also primary care for medical issues. Patient verbalized understanding and agreed. -Social work to help arrange police escort and discharge planning so that patient will be able to stay with her sister while she is filing for eviction to have her grandson removed from her house. Social work also to arrange for patients follow up appointments for psychiatric care along with follow up with primary care provider. -Patient counseled on abstaining from recreational drugs and marijuana and alco hol. Was informed/educated on the adverse effects on their physical and mental health. Patient verbally agreed and understood. -Patient was instructed to return to the hospital or seek immediate medical care if their psychiatric or medical symptoms do worsen or reoccur. Allergies Allergy/AdvReac Type Severity Reaction Status Date / Time duloxetine [From Cymbalta] Allergy Severe Anaphylaxis Verified 08/19/20 03:24 Laboratory Results WBC 3.9 k/uL (3.8-10.6) 08/19/20 07:26 RBC 4.43 m/uL (3.80-5.40) 08/19/20 07:26 Hgb 14.4 gm/dL (11.4-16.0) 08/19/20 07:26 Hct 43.8 % (34.0-46.0) 08/19/20 07:26 MCV 98.9 fL (80.0-100.0) 08/19/20 07:26 MCH 32.4 pg (25.0-35.0) 08/19/20 07:26 MCHC 32.8 g/dL (31.0-37.0) 08/19/20 07:26 RDW 12.9 % (11.5-15.5) 08/19/20 07:26 Plt Count 180 k/uL (150-450) 08/19/20 07:26 MPV 7.4 08/19/20 07:26 Neutrophils % 51 % 08/19/20 07:26 Lymphocytes % 39 % 08/19/20 07:26 Monocytes % 6 % 08/19/20 07:26 Eosinophils % 1 % 08/19/20 07:26 Basophils % 0 % 08/19/20 07:26 Neutrophils # 2.0 k/uL (1.3-7.7) 08/19/20 07:26 Lymphocytes # 1.5 k/uL (1.0-4.8) 08/19/20 07:26 Monocytes # 0.2 k/uL (0-1.0) 08/19/20 07:26 Eosinophils # 0.0 k/uL (0-0.7) 08/19/20 07:26 Basophils # 0.0 k/uL (0-0.2) 08/19/20 07:26 Sodium 139 mmol/L (137-145) 08/19/20 07:26 Potassium 3.7 mmol/L (3.5-5.1) 08/19/20 07:26 Chloride 107 mmol/L (98-107) 08/19/20 07:26 Carbon Dioxide 30 mmol/L (22-30) 08/19/20 07:26 Anion Gap 2 mmol/L 08/19/20 07:26 BUN 12 mg/dL (7-17) 08/19/20 07:26 Creatinine 0.60 mg/dL (0.52-1.04) 08/19/20 07:26 Est GFR (CKD-EPI)AfAm >90 (>60 ml/min/1.73 sqM) 12/16/20 07:26 Est GFR (CKD-EPI)NonAf >90 (>60 ml/min/1.73 sqM) 08/19/20 07:26 Glucose 96 mg/dL (74-99) 08/19/20 07:[address] Glu mg/dL 108 08/19/20 07:26 Hemoglobin A1c 5.4 % (4.0-6.0) 08/19/20 07:26 Calcium 9.0 mg/dL (8.4-10.2) 08/19/20 07:26 Total Bilirubin 1.1 mg/dL (0.2-1.3) 08/19/20 07:26 Conjugated Bilirubin 0.0 mg/dL (0.0-0.3) 08/19/20 07:26 Unconjugated Bilirubin 0.8 mg/dL (0.0-1.1) 08/19/20 07:26 Delta Bilirubin 0.3 mg/dL (0.0-0.2) H 08/19/20 07:26 AST 21 U/L (14-36) 08/19/20 07:26 ALT 11 U/L (4-34) 08/19/20 07:26 Alkaline Phosphatase 60 U/L (38-126) 08/19/20 07:26 Total Protein 6.5 g/dL (6.3-8.2) 08/19/20 07:26 Albumin 3.7 g/dL (3.5-5.0) 08/19/20 07:26 Triglycerides 92 mg/dL (<150) 08/19/20 07:26 Cholesterol 154 mg/dL (<200) 08/19/20 07:26 LDL Cholesterol, Calc 91 mg/dL (0-99) 08/19/20 07:26 HDL Cholesterol 45 mg/dL (40-60) 08/19/20 07:26 TSH 2.140 mIU/L (0.465-4.680) 08/19/20 07:26 Urine Color Yellow 08/20/20 14:51 Urine Appearance Clear (Clear) 08/20/20 14:51 Urine pH 6.5 (5.0-8.0) 08/20/20 14:51 Ur Specific [place] 1.013 (1.001-1.035) 08/20/20 14:51 Urine Protein Negative (Negative) 08/20/20 14:51 Urine Glucose (UA) Negative (Negative) 08/20/20 14:51 Urine Ketones Negative (Negative) 08/20/20 14:51 Urine Blood Negative (Negative) 08/20/20 14:51 Urine Nitrite Negative (Negative) 08/20/20 14:51 Urine Bilirubin Negative (Negative) 08/20/20 14:51 Urine Urobilinogen <2.0 mg/dL (<2.0) 08/20/20 14:51 Ur Leukocyte Esterase Small (Negative) H 08/20/20 14:51 Urine RBC 1 /hpf (0-5) 08/20/20 14:51 Urine WBC 3 /hpf (0-5) 08/20/20 14:51 Ur Squamous Epith Cells <1 /hpf (0-4) 08/20/20 14:51 Hyaline Casts 1 /lpf (0-2) 08/20/20 14:51 Urine Mucus Many /hpf (None) H 08/20/20 14:51 Urine Opiates Screen Not Detected (NotDetected) 08/19/20 03:25 Ur Oxycodone Screen Not Detected (NotDetected) 08/19/20 03:25 Urine Methadone Screen Not Detected (NotDetected) 08/19/20 03:25 Ur Propoxyphene Screen Not Detected (NotDetected) 08/19/20 03:25 Ur Barbiturates Screen Not Detected (NotDetected) 08/19/20 03:25 U Tricyclic Antidepress Not Detected (NotDetected) 08/19/20 03:25 Ur Phencyclidine Scrn Not Detected (NotDetected) 08/19/20 03:25 Ur Amphetamines Screen Not Detected (NotDetected) 08/19/20 03:25 U Methamphetamines Scrn Not Detected (NotDetected) 08/19/20 03:25 U Benzodiazepines Scrn Not Detected (NotDetected) 08/19/20 03:25 Urine Cocaine Screen Not Detected (NotDetected) 08/19/20 03:25 U Marijuana (THC) Screen Detected (NotDetected) H 08/19/20 03:25 Coronavirus (PCR) Not Detected (Not Detectd) 08/19/20 03:10 Vital Signs Temp 97.8 F 08/26/20 06:20 Pulse 66 08/26/20 06:20 Resp 16 08/24/20 06:42 BP 132/60 08/26/20 06:20 Pulse Ox 96 08/21/20 10:30 Patient Condition at Discharge: Stable Plan - Discharge Summary New Discharge Prescriptions: New Aspirin 81 mg PO DAILY 30 Days chew Atorvastatin [Lipitor] 10 mg PO DAILY 30 Days tab Melatonin 6 mg PO HS 30 Days tablet Ibuprofen [Motrin] 600 mg PO Q8H PRN 30 Days tab PRN Reason: Moderate To Severe Pain FLUoxetine HCL [PROzac] 40 mg PO DAILY 30 Days cap Mirtazapine [Remeron] 15 mg PO HS 30 Days tab Acetaminophen Tab [Tylenol] 650 mg PO Q4HR PRN tab PRN Reason: Pain/Discomfort Discontinued Ergocalciferol [Vitamin D2 (DRISDOL)] 50,000 unit PO Q14D Atorvastatin [Lipitor] 10 mg PO DAILY Aspirin EC [Ecotrin Low Dose] 81 mg PO DAILY Discharge Medication List Acetaminophen Tab [Tylenol] 650 mg PO Q4HR PRN tab 08/26/20 [Rx] Aspirin 81 mg PO DAILY 30 Days chew 08/26/20 [Rx] Atorvastatin [Lipitor] 10 mg PO DAILY 30 Days tab 08/26/20 [Rx] FLUoxetine HCL [PROzac] 40 mg PO DAILY 30 Days cap 08/26/20 [Rx] Ibuprofen [Motrin] 600 mg PO Q8H PRN 30 Days tab 08/26/20 [Rx] Melatonin 6 mg PO HS 30 Days tablet 08/26/20 [Rx] Mirtazapine [Remeron] 15 mg PO HS 30 Days tab 08/26/20 [Rx] Follow up Appointment(s)/Referral(s): Remberto Otto MD [Primary Care Provider] - 1-2 days Activity/Diet/Wound Care/Special Instructions: Activity and diet as tolerated. Avoid the use of street drugs and alcohol. Take all medications as prescribed. When you are in need of refills on your medications please contact your medical provider and/or outpatient psychiatrist to have this done. Please go to scheduled outpatient appointment for aftercare treatment. If symptoms return or become worse, call the crisis line at and/or go to the nearest emergency room for evaluation. Discharge Disposition: HOME SELF-CARE
== END 2020-08-26 13:19 | disposition home or self-care (01) | DRG 885 ==
LOC: EC 22:30 → 3MHU 08-19 03:04
PROVIDERS: ADMIT Psychiatry & Neurology Psychiatry; ATTEND Psychiatry & Neurology Psychiatry
DX: F33.9 Major depressive disorder, recurrent, unspecified (principal); R45.851 Suicidal ideations; E78.5 Hyperlipidemia, unspecified; F12.10 Cannabis abuse, uncomplicated; F41.9 Anxiety disorder, unspecified; G47.00 Insomnia, unspecified; G47.33 Obstructive sleep apnea (adult) (pediatric); K64.9 Unspecified hemorrhoids; M19.90 Unspecified osteoarthritis, unspecified site; R11.2 Nausea with vomiting, unspecified; Z20.828 Contact with and (suspected) exposure to other viral communicable diseases; Z79.82 Long term (current) use of aspirin; Z79.899 Other long term (current) drug therapy; Z90.710 Acquired absence of both cervix and uterus; Z88.8 Allergy status to other drugs, medicaments and biological substances; Z90.49 Acquired absence of other specified parts of digestive tract; Z87.19 Personal history of other diseases of the digestive system; Z98.51 Tubal ligation status; Z98.42 Cataract extraction status, left eye; Z98.41 Cataract extraction status, right eye; Z98.890 Other specified postprocedural states; Z80.8 Family history of malignant neoplasm of other organs or systems; Z82.49 Family history of ischemic heart disease and other diseases of the circulatory system; Z82.0 Family history of epilepsy and other diseases of the nervous system
CPT/HCPCS: 80053; 80061; 80306; 81001; 82075; 82248; 83036; 84443; 85025; 87635; 93005; 99285

== ENCOUNTER 2024-03-13 12:50 | Inpatient (IN) | payer MEDICARE, BC ==
[2024-03-12 10:00] VITALS: BMI 34.5
[~2024-03-13 12:50] MED LIST changes: +HYDROmorphone 0.5 MG/0.5 ML SYRINGE IVP PRN; -LIDOCAINE 1% 20 ML VIAL (10MG/ML) FOR IV START INTRADERMA PRN
[2024-03-13] MEDS: OXYMETAZOLINE 0.05% NASL SPRAY 1 SPRAY BOTTLE EA NOSTRIL PRN (13:23)
[2024-03-13] MEDS: IV FLUID CONTINUATION 1,000 ML IV ONE (13:37)
[2024-03-13] MEDS: FAMOTIDINE 20 MG/2 ML VIAL IV PRN (13:48)
[2024-03-13] MEDS: DEXAMETHASONE SOD PHOSPHATE 4 MG/ML 1 ML VIAL IVP STA (13:50)
[2024-03-13] MEDS: ONDANSETRON 4 MG/2 ML VIAL IVP STA (13:50)
[2024-03-13] MEDS: LIDOCAINE 1%-EPI 1:100,000 20 ML VIAL SQ ONE ×3 (15:22→15:41)
[2024-03-13] MEDS ORDERED: GLYCOPYRROLATE 0.2 MG/ML 2 ML VIAL ONE (15:25)
[2024-03-13] MEDS ORDERED: SUCCINYLCHOLINE CHLORIDE 200 MG/10 ML VIAL IV ONE (15:25)
[2024-03-13] MEDS ORDERED: LIDOCAINE 1% INJ 10MG/ML (20 ML MDV) ONE (15:25)
[2024-03-13] MEDS ORDERED: PROPOFOL 10 MG/ML 20 ML VIAL IV ONE (15:25)
[2024-03-13] MEDS ORDERED: fentaNYL (PF) 50 MCG/ML 2 ML AMP ONE (15:25)
[2024-03-13] MEDS: BACITRACIN ZINC 500 UNIT/GM OINT 28.4 GM TUBE TOPICAL ONE (16:15)
--- NOTE | 2024-03-13 16:21 | P.OP ---
Date of Procedure: 03/13/24 Preoperative Diagnosis: nasal fracture with posttraumatic nasal deformity Deviated nasal septum Postoperative Diagnosis: same Procedure(s) Performed: closed nasal reduction Septoplasty Anesthesia: HERBERTA Surgeon: Christopher Nicole Estimated Blood Loss (ml): 3 Pathology: other (nasal septal bone and cartilage) Condition: stable Disposition: PACU Indications for Procedure: this is a 78-year-old white female who fell sustaining a nasal fracture and also nasal septal deformity with nasal airway obstruction Operative Findings: nasal dorsum is deviated to the right. The septum is deviated to the left anteriorly to the right posteriorly Description of Procedure: DESCRIPTION OF PROCEDURE: The patient was brought to the operative suite, placed in the supine position. The patient underwent induction of general anesthesia with oral endotracheal intubation without difficulty. The patient was prepped and draped in the usual aseptic fashion. 1% lidocaine with 1:100,000 epinephrine was infused submucosally on both sides of the nasal septum. this was allowed to work for 7 minutes for vasoconstrictive effect. A left hemitransfixion incision was then made through the mucoperichondrial. Mucoperiosteal flap on the left elevated. Bony cartilaginous junction was disarticulated and mucoperiosteal flap on the right was elevated. Bony nasoseptal deformity were removed with Lisa forceps and an inferior cartilaginous strip was removed, leaving a full 1.5 cm caudal strut. Checking intranasally, this corrected the nasal septal deformities and the hemitransfixion incision was closed with running 4-0 chromic suture. The bilateral Connelly airway splints coated in bacitracin ointment were placed in the nasal cavities and sutured transseptally with 4-0 nylon suture. Closed nasal reduction was then performed with reduction of the nasal fractures in order to obtain straight dorsum. This was accomplished. Steri-Strips and a thermoplastic nasal splint was placed externally. The patient was then suctioned in an orogastric fashion. The patient was allowed to emerge from general anesthesia, having tolerated the procedure well and was extubated in the operating suite, transferred to postoperative recovery area in satisfactory condition.
[2024-03-13] MEDS: LACTATED RINGERS 1,000 ML IV ONE (16:38)
[2024-03-13] MEDS: ALBUTEROL NEBULIZED 2.5 MG/3 ML INHALATION STA (17:11)
[2024-03-13 18:41] LABS: Glucose,Whole Blood 192 mg/dL (70-110)
[2024-03-13] MEDS: IPRATROPIUM-ALBUTEROL 3 ML NEB INHALATION SCH (19:13)
[2024-03-13 20:15] LABS: Glucose,Whole Blood 169 mg/dL (70-110)
[2024-03-13] MEDS: INSULIN ASPART (NovoLOG) 100 UNIT/ML VIAL SQ SCH (20:50)
[2024-03-13] MEDS: LACTATED RINGERS 1,000 ML IV SCH (20:51)
[2024-03-13] MEDS: ACETAMINOPHEN TAB 325 MG TAB PO PRN (20:52)
[2024-03-13] MEDS: CEPHALEXIN 250 MG CAP PO SCH (21:10)
[2024-03-13 22:39] LABS: HCT 41.8 % (34.0-46.0); HGB 13.5 gm/dL (11.4-16.0); MCH 33.1 pg (25.0-35.0); MCHC 32.2 g/dL (31.0-37.0); Macrocytosis Slight; Mean Platelet Volume 7.9; Platelet Count 234 k/uL (150-450); RBC 4.06 m/uL (3.80-5.40); RDW 13.3 % (11.5-15.5); WBC 7.5 k/uL (3.8-10.6)
[2024-03-13 22:56] LABS: African American GFR (CKD) >90 (>60 ml/min/1.73 sqM); Anion Gap 5 mmol/L; Blood Urea Nitrogen 11 mg/dL (7-17); Carbon Dioxide 28 mmol/L (22-30); Chloride 105 mmol/L (98-107); Glucose 181 mg/dL (74-99); Sodium 138 mmol/L (137-145)
[2024-03-13 22:57] LABS: ALT 15 U/L (4-34); AST 23 U/L (14-36); Albumin 3.6 g/dL (3.5-5.0); Alkaline Phosphatase 77 U/L (38-126); Non-African American GFR(CKD) 90 (>60 ml/min/1.73 sqM); Total Bilirubin 0.4 mg/dL (0.2-1.3); Total Protein 6.1 g/dL (6.3-8.2)
[2024-03-13 23:05] LABS: NT-Pro-B-Type Natriuretic Pept 255 pg/mL
[2024-03-13 23:38] LABS: Appearance,Urine Clear (Clear); Bilirubin,Urine Negative (Negative); Blood,Urine Negative (Negative); Color,Urine Colorless; Glucose,Urine (UA) Negative (Negative); Ketones,Urine Negative (Negative); Leukocyte Esterase,Urine Negative (Negative); Nitrite,Urine Negative (Negative); PH, Urine 6.5 (5.0-8.0); Protein,Urine Negative (Negative); Urobilinogen,Urine <2.0 mg/dL (<2.0)
--- NOTE | 2024-03-14 01:26 | XR ---
EXAM: XR Chest, 1 View CLINICAL HISTORY: ITS.REASON XR Reason: hypoxia TECHNIQUE: Frontal view of the chest. COMPARISON: XR Chest dated 06/08/19 FINDINGS: Lungs: Low lung volumes. No focal consolidation. Pleural space: Unremarkable. No pneumothorax. Heart: Mild cardiomegaly versus appearance due to low lung volumes and portable technique. Mediastinum: Unremarkable. Normal mediastinal contour. Bones/joints: Unremarkable. No acute fracture. Upper abdomen: Elevated right hemidiaphragm. IMPRESSION: Low lung volumes. No focal consolidation.
[2024-03-14 05:38] LABS: Glucose,Whole Blood 128 mg/dL (70-110)
--- NOTE | 2024-03-14 07:55 | P.HPIM ---
History of Present Illness H&P Date: 03/13/24 Chief Complaint: Severe hypoxia, worsening shortness of breath HISTORY OF PRESENT ILLNESS: 78-year-old one of my office patient for many years with past medical history of obstructive sleep apnea, osteoarthritis, atherosclerotic heart disease with mild stenosis of the LAD did not require any angioplasty or stent placement, history of type 2 diabetes, High, hypertension, hyperlipidemia, severe GERD, depression and severe anxiety attacks, She apparently sustained a fall in February 28 created nasal fracture with severe deviated septum she was referred to ENT for close nasal reduction and septoplasty, procedure was done patient developed to have severe hypoxia requiring 5 L of O2 to keep her pulse ox at 88 percentile. Patient had no complaint of chest pain angina or major shortness of breath was left in recovery for a few hours not been able to bring her pulse ox any higher. Patient still not feeling very well not been able to release patient home she was hospitalized with above problem. Will run further testing including EKG, chest x-ray, full panel blood work including D-dimer and proBNP see if any of the above can explain her symptoms or is just related to her severe obstructive sleep apnea which become much worse with the weight gain she had this last 2 years that patient has not been using CPAP. REVIEW OF SYSTEMS: CONSTITUTIONAL: Obese and no acute respiratory distress. EYES: No icterus sclerae, no conjunctivitis. EARS, NOSE, MOUTH, THROAT, and FACE: No sore throat, lymphadenopathy, carotid bruits or deformity. RESPIRATORY: Positive SOB, no cough or wheezes. Significant hypoxia with mild dyspnea CARDIOVASCULAR: No CP, Palpitation, PND, Orthopnea, or angina. GASTROINTESTINAL: No Abd pain, Nausea or vomiting, no Diarrhea or constipation, No GI Bleed, no distention or masses. Significant heartburn and indigestion. GENITOURINARY: Negative for Hematuria or UTI, no kidney stones. INTEGUMENT/BREAST: Negative for any muscular injury with mild osteoarthritis.. HEMATOLOGIC/LYMPHATIC: Negative for bleed or purpura. MUSCULOSKELTAL: Negative for Myalgia or arthralgia. NEURLOGICAL: No LOC, Sz or syncope, blurred vision dizziness or abnormality.. BEHAVIORAL/PSYCH: Negative. ENDOCRINE: Negative. SOCIAL HISTORY Patient is a lifelong nonsmoker. No alcohol use, no illicit drug use. FAMILY HISTORY Mother has history of atrial fibrillation and Parkinson's. Father has history of myocardial infarction while in his 80s. Patient has one brother that in a drowning accident. Patient has one sister that at age 64 from brain cancer and 1 sister with atrial fibrillation. Patient has one daughter with congenital heart disease and had open heart at age 13. PHYSICAL EXAMINATION: General Appearance: Alert, obese, cooperative, no distress, appears stated age. Neck HEENT: Supple, no lymphadenopathy, no thyroid enlargement, no carotid and discomfort over the bridge of the nose and some packing on. Lungs: Decreased breath sound bilaterally with fine rhonchi no crackles or wheezes. Chest Wall: Decreased expansion with deep inspiration no tenderness and no deformity was found on exam, no costochondral pain or discomfort. Heart: Regular rate and rhythm, S1, S2 positive S3 no murmur. Back: Symmetric, no curvature, ROM normal, no CVA tenderness. Abdomen: Soft, non-tender, bowel sounds active all four quadrants, no masses, no organomegaly. Extremities: Extremities normal, atraumatic, no cyanosis or edema. Pulses: 2+ and symmetric. Skin: Skin color, texture, tugor normal, no rashes or lesions. Neurologic: Alert oriented x3 cranial nerves II through XII intact, no motor deficit, no abnormal balance or gait. ASSESSMENT AND PLAN: _Severe hypoxia with possible stable chronic respiratory failure, symptoms could be related to severe obstructive sleep apnea, underlying asthma or other. Continue O2, updraft treatment, chest x-ray D-dimer proBNP EKG will be done. will try to exclude any other possibility including PE or other. _Nose fracture and nasal deviated septum: Postrepair with ENT stable continue packing require probably at this follow-up. _Underlying asthma with worsening symptoms with GERD, probably causing slight irritation and aspiration, continue updraft treatment continue O2 for now. _Type 2 diabetes: Has been on metformin continue medication Accu-Chek with sliding scales coverage will be done. _Atherosclerotic heart disease with mild coronary artery disease from coronary angiogram back in 2016 did not require any angioplasty or stent placement just medical management. _Hyperlipidemia: Remain on atorvastatin 20 mg a day. _Elevated blood pressure: Has been on lisinopril 2.5 mg a day. _Hiatal hernia and severe GERD: Remain on pantoprazole. _Vitamin D deficiency: Remain on vitamin D supplement regular basis. _Severe depression remain on fluoxetine 40 mg a day and mirtazapine mirtazapine will be held for now. GI prophylaxis: Will continue pantoprazole. DVT prophylaxis: Knee-high CHRISTIANO hose will be done. CODE STATUS: Full code. Admit patient to the inpatient service for 1-2 night stay. Past Medical History Past Medical History: Hyperlipidemia, Osteoarthritis (OA), Sleep Apnea/CPAP/BIPAP Additional Past Medical History / Comment(s): See Dr Nicole's H&P. Recent fall, broke nose, left hand and knee bruised. No CPAP required after weight l oss. History of Any Multi-Drug Resistant Organisms: None Reported Past Surgical History: Cholecystectomy, Hysterectomy, Joint Replacement, Orthopedic Surgery, Tubal Ligation Additional Past Surgical History / Comment(s): Left knee arthroscopy, sinus surgery, oral surgery, bilateral cataract surgery, left knee replacement. Past Anesthesia/Blood Transfusion Reactions: Previous Problems w/ Anesthesia, Motion Sickness Additional Past Anesthesia/Blood Transfusion Reaction / Comment(s): "Oxygen level and heart rate dropped, ended up in ICU after knee scope at age 56, no other problems with anesthesia". Past Psychological History: Anxiety, Depression Additional Psychological History / Comment(s): Depression better now, sttaes was worse after in 2014. Smoking Status: Never smoker Past Alcohol Use History: None Reported Additional Past Alcohol Use History / Comment(s): Patient is a lifelong nonsmoker, no illicit drug use, no alcohol use. Past Drug Use History: Marijuana Additional Drug Use History / Comment(s): No Marijuana since 2014. - Past Family History Sister(s) Family Medical History: AFIB, Cancer Additional Family Medical History / Comment(s): One sister at age 64 from brain cancer and 1 sister had atrial fibrillation. Mother Family Medical History: Dementia Additional Family Medical History / Comment(s): Mother has history of atrial fibrillation and Parkinson Father Family Medical History: Myocardial Infarction ([place]) Additional Family Medical History / Comment(s): Father has history of myocardial infarction while in his 80s. Daughter(s) Family Medical History: Cancer Additional Family Medical History / Comment(s): Daughter had congenital heart disease with open heart surgery at age 13. Medications and Allergies Home Medications Medication Instructions Recorded Confirmed Type Acetaminophen Tab [Tylenol] 650 mg PO Q4HR PRN tab 08/26/20 03/13/24 Rx Aspirin 81 mg PO DAILY 30 Days chew 08/26/20 03/13/24 Rx Atorvastatin [Lipitor] 10 mg PO DAILY 30 Days tab 08/26/20 03/13/24 Rx Melatonin 6 mg PO HS 30 Days tablet 08/26/20 03/13/24 Rx Mirtazapine [Remeron] 15 mg PO HS 30 Days tab 08/26/20 03/13/24 Rx FLUoxetine HCL [PROzac] 40 mg PO QAM 03/12/24 03/13/24 History Allergies Allergy/AdvReac Type Severity Reaction Status Date / Time duloxetine [From Cymbalta] Allergy Severe Anaphylaxis Verified 03/13/24 13:17 Physical Exam Vitals: Vital Signs Temp Pulse Resp BP BP Pulse Ox 03/13/24 19:53 97.3 F L 100 17 139/78 94 L 03/13/24 19:00 105 H 18 154/72 90 L 03/13/24 18:43 106 H 18 148/69 87 L 03/13/24 18:27 104 H 18 148/69 89 L 03/13/24 18:12 18 90 L 03/13/24 18:04 109 H 18 164/71 93 L 03/13/24 17:49 92 18 159/72 96 03/13/24 17:40 89 20 160/72 97 03/13/24 17:25 16 86 L 03/13/24 17:22 90 18 165/75 80 L 03/13/24 17:07 86 16 175/72 91 L 03/13/24 16:52 91 18 163/83 88 L 03/13/24 16:37 98.3 F 97 16 184/86 93 L 03/13/24 13:19 97.1 F L 64 18 175/79 94 L Intake and Output 03/13/24 03/13/24 03/13/24 06:59 14:59 22:59 Intake Total 200 1050 Output Total 5 Balance 200 1045 Intake: IV 200 1050 Output: Estimated Blood Loss 5 Other: Voiding Method Bedpan # Voids 3 Weight 93.3 kg 93.3 kg Results CBC & Chem 7: 03/13/24 22:22 03/13/24 22:22 Labs: Abnormal Lab Results - Last 24 Hours (Table) 03/13/24 03/13/24 Range/Units 18:40 20:12 POC Glucose (mg/dL) 192 H 169 H (70-110) mg/dL Thrombosis Risk Factor Assmnt - Choose All That Apply Any of the Below Risk Factors Present?: Yes Each Factor Represents 1 point: Obesity (BMI >25) Other Risk Factors: Yes Each Risk Factor Represents 3 Points: Age 75 years or older Other congenital or acquired thrombophilia - If yes, enter type in comment: No Thrombosis Risk Factor Assessment Total Risk Factor Score: 4 Thrombosis Risk Factor Assessment Level: Moderate Risk
[2024-03-14] MEDS: ASPIRIN 81 MG PO SCH (08:43)
[2024-03-14] MEDS: FLUoxetine HCL 20 MG CAP PO SCH (08:43)
[2024-03-14] MEDS: ATORVASTATIN 10 MG TAB PO SCH (08:43)
--- NOTE | 2024-03-14 10:56 | CT ---
EXAMINATION TYPE: CT chest angio for PE DATE OF EXAM: 03/14/2024 COMPARISON: None HISTORY: PE CT DLP: 435.1 mGycm Automated exposure control for dose reduction was used. CONTRAST: CT Chest for pulmonary embolism performed with without and with IV Contrast, patient injected with 10 0 ml mL of Isovue 370. FINDINGS: Exam is limited by involuntary breathing motion. There is no lung mass. There is no airspace consolidation. There are small bilateral pleural effusions. There are no filling defects within the pulmonary arterial circulation to suggest pulmonary embolism. There is no mediastinal, hilar or axillary adenopathy. Limited scanning through the upper abdomen reveals no abnormality. No focal osseous lesions are seen. IMPRESSION: 1. Exam somewhat limited by breathing motion. 2. No definite pulmonary embolus. 3. Small bilateral pleural effusions
[2024-03-14 11:27] LABS: Glucose,Whole Blood 123 mg/dL (70-110)
[2024-03-14] MEDS: FUROSEMIDE 10 MG/ML 4 ML VIAL IV STA (11:34)
--- NOTE | 2024-03-14 14:36 | P.CNPUL ---
History of Present Illness Consult date: 03/14/24 Requesting physician: Remberto Otto Reason for consult: other (Postoperative hypoxia) Chief complaint: Status post nasal fracture repair History of present illness: This is a 78-year-old female known history of obesity, obstructive sleep apnea syndrome, history of mild coronary artery disease involving the LAD, history of type 2 diabetes, High, hypertension, dyslipidemia, depression, history of generalized anxiety disorder, patient fell on February 28 and sustained a nasal fracture with severe deviated septum. Yesterday the patient underwent close nasal reduction and septoplasty Dr. Nicole. However after her surgery the patient was in the recovery room, and she was noted to have low O2 saturation requiring 5 L nasal cannula to barely maintain O2 saturation in the 90s. This was supposed to be an outpatient procedure, however considering the significant desaturation and her oxygen, patient was admitted and this consult was initiated. Patient has been receiving updrafts since yesterday, her CT angiogram of the chest showed no evidence of pulmonary embolism, however it did show small pleural effusions and hypoventilatory status with bibasilar atelectasis. Patient has been improving since yesterday, nonetheless she remains on 5 L nasal cannula, and O2 sats is 91% at best. Postoperative chest x-ray showed mostly low lung volumes no evidence of active disease noted on the chest x-ray. No focal consolidation. Review of Systems REVIEW OF SYSTEMS: CONSTITUTIONAL: Negative. EYES: Negative. ENT: As noted in HPI CARDIAC: Negative. PULMONARY: As noted in HPI denies cough wheezing shortness of breath or chest pain GI: Negative. GENITOURINARY: Negative. MUSCULOSKELETAL: Negative. SKIN: Negative. NEUROPSYCH: Negative. ENDOCRINE: Negative. HEMATOLOGIC: Negative. Past Medical History Past Medical History: Hyperlipidemia, Osteoarthritis (OA), Sleep Apnea/CPAP/BIPAP Additional Past Medical History / Comment(s): See Dr Nicole's H&P. Recent fall, broke nose, left hand and knee bruised. No CPAP required after weight loss. History of Any Multi-Drug Resistant Organisms: None Reported Past Surgical History: Cholecystectomy, Hysterectomy, Joint Replacement, Orthopedic Surgery, Tubal Ligation Additional Past Surgical History / Comment(s): Left knee arthroscopy, sinus surgery, oral surgery, bilateral cataract surgery, left knee replacement. Past Anesthesia/Blood Transfusion Reactions: Previous Problems w/ Anesthesia, Motion Sickness Additional Past Anesthesia/Blood Transfusion Reaction / Comment(s): "Oxygen level and heart rate dropped, ended up in ICU after knee scope at age 56, no other problems with anesthesia". Past Psychological History: Anxiety, Depression Additional Psychological History / Comment(s): Depression better now, sttaes was worse after in 2014. Smoking Status: Never smoker Past Alcohol Use History: None Reported Additional Past Alcohol Use History / Comment(s): Patient is a lifelong nonsmoker, no illicit drug use, no alcohol use. Past Drug Use History: Marijuana Additional Drug Use History / Comment(s): No Marijuana since 2014. - Past Family History Sister(s) Family Medical History: AFIB, Cancer Additional Family Medical History / Comment(s): One sister at age 64 from brain cancer and 1 sister had atrial fibrillation. Mother Family Medical History: Dementia Additional Family Medical History / Comment(s): Mother has history of atrial fibrillation and Parkinson Father Family Medical History: Myocardial Infarction ([place]) Additional Family Medical History / Comment(s): Father has history of myocardial infarction while in his 80s. Daughter(s) Family Medical History: Cancer Additional Family Medical History / Comment(s): Daughter had congenital heart disease with open heart surgery at age 13. Medications and Allergies Home Medications Medication Instructions Recorded Confirmed Type Acetaminophen Tab [Tylenol] 650 mg PO Q4HR PRN tab 08/26/20 03/13/24 Rx Aspirin 81 mg PO DAILY 30 Days chew 08/26/20 03/13/24 Rx Atorvastatin [Lipitor] 10 mg PO DAILY 30 Days tab 08/26/20 03/13/24 Rx Melatonin 6 mg PO HS 30 Days tablet 08/26/20 03/13/24 Rx Mirtazapine [Remeron] 15 mg PO HS 30 Days tab 08/26/20 03/13/24 Rx FLUoxetine HCL [PROzac] 40 mg PO QAM 03/12/24 03/13/24 History Allergies Allergy/AdvReac Type Severity Reaction Status Date / Time duloxetine [From Cymbalta] Allergy Severe Anaphylaxis Verified 03/13/24 13:17 Physical Exam Vitals: Vital Signs Temp Pulse Pulse Resp BP BP Pulse Ox 03/14/24 13:23 70 03/14/24 11:28 70 20 144/73 91 L 03/14/24 11:27 80 03/14/24 11:22 76 03/14/24 08:30 76 03/14/24 08:16 72 94 L 03/14/24 08:12 97.6 F 74 22 153/78 94 L 03/14/24 04:00 97.4 F L 65 17 136/58 96 03/13/24 23:13 03/13/24 23:02 17 96 03/13/24 22:45 17 89 L 03/13/24 22:40 97.6 F 93 17 121/70 85 L 03/13/24 19:53 97.3 F L 100 17 139/78 94 L 03/13/24 19:00 105 H 18 154/72 90 L 03/13/24 18:43 106 H 18 148/69 87 L 03/13/24 18:27 104 H 18 148/69 89 L 03/13/24 18:12 18 90 L 03/13/24 18:04 109 H 18 164/71 93 L 03/13/24 17:49 92 18 159/72 96 03/13/24 17:40 89 20 160/72 97 03/13/24 17:25 16 86 L 03/13/24 17:22 90 18 165/75 80 L 03/13/24 17:07 86 16 175/72 91 L 03/13/24 16:52 91 18 163/83 88 L 03/13/24 16:37 98.3 F 97 16 184/86 93 L FiO2 03/14/24 13:23 03/14/24 11:28 03/14/24 11:27 03/14/24 11:22 03/14/24 08:30 03/14/24 08:16 03/14/24 08:12 03/14/24 04:00 03/13/24 23:13 50 03/13/24 23:02 03/13/24 22:45 03/13/24 22:40 03/13/24 19:53 03/13/24 19:00 03/13/24 18:43 03/13/24 18:27 03/13/24 18:12 03/13/24 18:04 03/13/24 17:49 03/13/24 17:40 03/13/24 17:25 03/13/24 17:22 03/13/24 17:07 03/13/24 16:52 03/13/24 16:37 Intake and Output 03/13/24 03/14/24 03/14/24 22:59 06:59 14:59 Intake Total 1050 360 Output Total 5 Balance 1045 360 Intake: IV 1050 Oral 360 Output: Estimated Blood Loss 5 Other: Voiding Method Bedpan Bedpan Toilet # Voids 3 1 Weight 93.3 kg 97 kg General Appearance: Revealed 78-year-old female in no distress on 5 L nasal cannula Neck HEENT: supple, no neck masses, no JVD, evidence of packing on the bridge of the nose, otherwise unremarkable. Lungs: Diminished breath sound bilaterally, no crackles rhonchi or wheezes Chest Wall: Symmetrical chest expansion Heart: Distant S1-S2, no S3 gallop Abdomen: Obese soft nontender no megaly no rebound no guarding Extremities: No clubbing edema or cyanosis Skin: No rashes Neurologic: Alert oriented x 3 no gross focal deficit Psychiatric: Normal mood affect and normal mental status examination Results - Laboratory Findings CBC and BMP: 03/13/24 22:22 03/13/24 22:22 PT/INR, D-dimer D-Dimer 1.61 mg/L FEU (<0.60) H 03/13/24 22:22 Abnormal lab findings: Abnormal Labs 03/13/24 03/13/24 03/13/24 18:40 20:12 22:22 MCV 103.0 H D-Dimer Glucose POC Glucose (mg/dL) 192 H 169 H Total Protein 03/13/24 03/13/24 03/14/24 22:22 22:22 05:37 MCV D-Dimer 1.61 H Glucose 181 H POC Glucose (mg/dL) 128 H Total Protein 6.1 L 03/14/24 11:26 MCV D-Dimer Glucose POC Glucose (mg/dL) 123 H Total Protein - Diagnostic Findings Chest x-ray: image reviewed CT scan - chest: image reviewed (As noted in HPI) Assessment and Plan Assessment: Impression: Postoperative hypoxia with significant desaturation requiring 5 L nasal cannula to maintain O2 saturation in the low 90s. Suspect postoperative atelectasis, expected after surgery. Small bilateral pleural effusions noted on CT of the chest but were not appreciated on the chest x-ray, possibly related to some component of fluid overload or heart failure, patient will benefit from gentle diuresis, will recommend echocardiogram and assess LV function Nose fracture requiring surgery yesterday. Doubt underlying COPD or asthma patient had no previous history of such in the past. Type 2 diabetes. Coronary artery disease documented in 2016, did not require angioplasty or stent placement on medical therapy Dyslipidemia maintained on atorvastatin Benign essential hypertension on lisinopril History of hiatal hernia on omeprazole History of generalized anxiety disorder and depression, on proper therapy Recommendation: Discussed and reviewed with the patient her CT of the chest findings Incentive spirometry, and instructed to use on a regular basis Ambulate Gently diurese patient considering her CT of the chest showed small bilateral pleural effusion Continue bronchodilators as ordered by Dr. Franks. Consider echocardiogram and assess LV function Will continue to follow Time with Patient: Greater than 30
[2024-03-14 16:37] LABS: Glucose,Whole Blood 148 mg/dL (70-110)
[2024-03-14 20:13] LABS: Glucose,Whole Blood 132 mg/dL (70-110)
[2024-03-14] MEDS: MIRTAZAPINE 15 MG TAB PO SCH (21:16)
[2024-03-14] MEDS: MELATONIN 3 MG TABLET PO SCH (21:16)
--- NOTE | 2024-03-15 05:46 | P.PN ---
Subjective Progress Note Date: 03/14/24 HISTORY OF PRESENT ILLNESS: 78-year-old one of my office patient for many years with past medical history of obstructive sleep apnea, osteoarthritis, atherosclerotic heart disease with mild stenosis of the LAD did not require any angioplasty or stent placement, history of type 2 diabetes, High, hypertension, hyperlipidemia, severe GERD, depression and severe anxiety attacks, She apparently sustained a fall in February 28 created nasal fracture with severe deviated septum she was referred to ENT for close nasal reduction and septoplasty, procedure was done patient developed to have severe hypoxia requiring 5 L of O2 to keep her pulse ox at 88 percentile. Patient had no complaint of chest pain angina or major shortness of breath was left in recovery for a few hours not been able to bring her pulse ox any higher. Patient still not feeling very well not been able to release patient home she was hospitalized with above problem. Will run further testing including EKG, chest x-ray, full panel blood work including D-dimer and proBNP see if any of the above can explain her symptoms or is just related to her severe obstructive sleep apnea which become much worse with the weight gain she had this last 2 years that patient has not been using CPAP. 03/14/2024: Patient is doing very well resting in bed she is still on 4 L of O2 to keep her pulse ox above 90 percentile, vitals otherwise stable, D-dimer was elevated. Patient ended up going for CTA finding is consistent with no pulmonary embolism with small bilateral pleural effusion only at the right exam is unremarkable. Blood sugar is marginally elevated UA was negative. Vital signs continue to be well-controlled. Patient seen pulmonary seem to believe this is probably atelectasis postprocedure pacing the hypoxia and requirement for oxygen. Also Still seeing the patient on the see problem I will call her with her sleep apnea has not used her CPAP in ages encourage patient as an outpatient to go back to the sleep study and probably CPAP at some point. Medically after the pa violettant does not require to go home on oxygen or not pulmonary had requested to do echocardiogram to measure LV function will observe patient for 1 more day try to wean her off or down on oxygen at least to 2 L may be so she can go home on oxygen 2 L till assessed in the office again. REVIEW OF SYSTEMS: CONSTITUTIONAL: Obese and no acute respiratory distress. EYES: No icterus sclerae, no conjunctivitis. EARS, NOSE, MOUTH, THROAT, and FACE: No sore throat, lymphadenopathy, carotid bruits or deformity. RESPIRATORY: Positive SOB, no cough or wheezes. Significant hypoxia with mild dyspnea CARDIOVASCULAR: No CP, Palpitation, PND, Orthopnea, or angina. GASTROINTESTINAL: No Abd pain, Nausea or vomiting, no Diarrhea or constipation, No GI Bleed, no distention or masses. Significant heartburn and indigestion. GENITOURINARY: Negative for Hematuria or UTI, no kidney stones. INTEGUMENT/BREAST: Negative for any muscular injury with mild osteoarthritis.. HEMATOLOGIC/LYMPHATIC: Negative for bleed or purpura. MUSCULOSKELTAL: Negative for Myalgia or arthralgia. NEURLOGICAL: No LOC, Sz or syncope, blurred vision dizziness or abnormality.. BEHAVIORAL/PSYCH: Negative. ENDOCRINE: Negative. PHYSICAL EXAMINATION: General Appearance: Alert, obese, cooperative, no distress, appears stated age. Neck HEENT: Supple, no lymphadenopathy, no thyroid enlargement, no carotid and discomfort over the bridge of the nose and some packing on. Lungs: Decreased breath sound bilaterally with fine rhonchi no crackles or wheezes. Chest Wall: Decreased expansion with deep inspiration no tenderness and no deformity was found on exam, no costochondral pain or discomfort. Heart: Regular rate and rhythm, S1, S2 positive S3 no murmur. Back: Symmetric, no curvature, ROM normal, no CVA tenderness. Abdomen: Soft, non-tender, bowel sounds active all four quadrants, no masses, no organomegaly. Extremities: Extremities normal, atraumatic, no cyanosis or edema. Pulses: 2+ and symmetric. Skin: Skin color, texture, tugor normal, no rashes or lesions. Neurologic: Alert oriented x3 cranial nerves II through XII intact, no motor deficit, no abnormal balance or gait. ASSESSMENT AND PLAN: _Severe hypoxia with possible stable chronic respiratory failure, symptoms could be related to severe obstructive sleep apnea, underlying asthma or other. Continue O2 at 5 L to keep pulse ox above 90 percentile, rest of her testing D-dimer was positive CTA was negative chest x-ray does not show any infiltrate or infection and pulmonary are agreeable with the current management for now to continue updraft along with O2 and request echocardiogram for left ventricular function assessment. The meanwhile the plan if there is no other finding to probably help patient to go home on oxygen but will try to wean the oxygen down to 2 or 3 L and prepare for discharge. _Nose fracture and nasal deviated septum: Postrepair with ENT, stable she has a follow-up appointment in 1 to 2 days. _Underlying asthma with worsening symptoms with GERD, probably causing slight irritation and aspiration, continue updraft treatment continue O2 for now. Will continue proton pump inhibitor as well. _Type 2 diabetes: Has been on metformin continue medication Accu-Chek with sliding scales coverage will be done. Blood sugar has been running in the low 100s. _Atherosclerotic heart disease with mild coronary artery disease from coronary angiogram back in 2016 did not require any angioplasty or stent placement just medical management. Request another echocardiogram eventually probably patient would benefit from going back to see cardiology for further testing. _Hyperlipidemia: Remain on atorvastatin 20 mg a day. _Elevated blood pressure: Has been on lisinopril 2.5 mg a day. _Hiatal hernia and severe GERD: Remain on pantoprazole. _Vitamin D deficiency: Remain on vitamin D supplement regular basis. _Severe depression remain on fluoxetine 40 mg a day and mirtazapine mirtazapine will be held for now. Discussion: Echocardiogram was ordered, will try to wean patient off oxygen out down to 2 L nasal cannula and plan again to do set up for sleep study and prepare for CPAP again. Will evaluate patient again in 24 hours along with george hernandez and send her home hopefully on oxygen. Objective - Vital Signs Vital signs: Vital Signs Temp 97.4 F L 03/14/24 04:00 Pulse 65 03/14/24 04:00 Resp 17 03/14/24 04:00 BP 136/58 03/14/24 04:00 Pulse Ox 96 03/14/24 04:00 FiO2 50 03/13/24 23:13 Intake & Output 03/13/24 03/13/24 03/14/24 06:59 18:59 06:59 Intake Total 1250 Output Total 5 Balance 1245 Weight 93.3 kg 97 kg Intake: IV 1250 Output: Estimated Blood Loss 5 Other: Voiding Method Bedpan # Voids 1 - Labs CBC & Chem 7: 03/13/24 22:22 03/13/24 22:22 Labs: Abnormal Lab Results - Last 24 Hours (Table) 03/13/24 03/13/24 03/13/24 Range/Units 18:40 20:12 22:22 MCV 103.0 H (80.0-100.0) fL D-Dimer (<0.60) mg/L FEU Glucose (74-99) mg/dL POC Glucose (mg/dL) 192 H 169 H (70-110) mg/dL Total Protein (6.3-8.2) g/dL 03/13/24 03/13/24 03/14/24 Range/Units 22:22 22:22 05:37 MCV (80.0-100.0) fL D-Dimer 1.61 H (<0.60) mg/L FEU Glucose 181 H (74-99) mg/dL POC Glucose (mg/dL) 128 H (70-110) mg/dL Total Protein 6.1 L (6.3-8.2) g/dL
[2024-03-15 06:12] LABS: Glucose,Whole Blood 119 mg/dL (70-110)
[2024-03-15 11:41] LABS: Glucose,Whole Blood 130 mg/dL (70-110)
--- NOTE | 2024-03-15 14:37 | P.PN ---
Subjective Progress Note Date: 03/15/24 This is a 78-year-old female known history of obesity, obstructive sleep apnea syndrome, history of mild coronary artery disease involving the LAD, history of type 2 diabetes, High, hypertension, dyslipidemia, depression, history of generalized anxiety disorder, patient fell on February 28 and sustained a nasal fracture with severe deviated septum. Yesterday the patient underwent close nasal reduction and septoplasty Dr. Nicole. However after her surgery the patient was in the recovery room, and she was noted to have low O2 saturation requiring 5 L nasal cannula to barely maintain O2 saturation in the 90s. This was supposed to be an outpatient procedure, however considering the significant desaturation and her oxygen, patient was admitted and this consult was initiated. Patient has been receiving updrafts since yesterday, her CT angiogram of the chest showed no evidence of pulmonary embolism, however it did show small pleural effusions and hypoventilatory status with bibasilar atelectasis. Patient has been improving since yesterday, nonetheless she remains on 5 L nasal cannula, and O2 sats is 91% at best. Postoperative chest x-ray showed mostly low lung volumes no evidence of active disease noted on the chest x-ray. No focal consolidation. The patient is seen today March 15, 2024 in follow-up on the selective care unit. She is currently resting comfortably in bed. Awake and alert in no acute distress. She is maintaining O2 saturations in the 90s on 2 L/min per nasal cannula. She is again educated regarding the increased use of the incentive spirometer. Educated again. Glucose 130. Continued on bronchodilators. Currently on Keflex. Objective - Vital Signs Vital signs: Vital Signs Temp 97.6 F 03/15/24 07:30 Pulse 62 03/15/24 14:00 Resp 20 03/15/24 11:27 BP 112/66 03/15/24 11:27 Pulse Ox 95 03/15/24 11:27 FiO2 50 03/13/24 23:13 Intake & Output 03/14/24 03/15/24 03/15/24 18:59 06:59 18:59 Intake Total 960 354 Output Total 700 900 500 Balance 260 -900 -146 Weight 91.4 kg Intake: Oral 960 354 Output: Urine 700 900 500 Other: Voiding Method Toilet Toilet Toilet # Voids 2 2 - Exam General Appearance: Revealed pleasant 78-year-old female in no distress, resting in bed, on 2 L nasal cannula Neck HEENT: supple, no neck masses, no JVD, evidence of bruising on the bridge of the nose, otherwise unremarkable. Lungs: Diminished breath sound bilaterally, no crackles rhonchi or wheezes Chest Wall: Symmetrical chest expansion Heart: Distant S1-S2, no S3 gallop Abdomen: Obese soft nontender no megaly no rebound no guarding Extremities: No clubbing edema or cyanosis Skin: No rashes Neurologic: Alert oriented x 3 no gross focal deficit Psychiatric: Normal mood affect and normal mental status examination - Labs CBC & Chem 7: 03/13/24 22:22 03/13/24 22:22 Labs: Abnormal Lab Results - Last 24 Hours (Table) 03/14/24 03/14/24 03/15/24 Range/Units 16:36 20:08 06:10 POC Glucose (mg/dL) 148 H 132 H 119 H (70-110) mg/dL 03/15/24 Range/Units 11:39 POC Glucose (mg/dL) 130 H (70-110) mg/dL Assessment and Plan Assessment: Postoperative hypoxia with significant desaturation requiring 5 L nasal cannula to maintain O2 saturation in the low 90s. Improving and currently on 2 L nasal cannula. Suspect low lung volumes. Encourage increased use of the incentive spirometer Suspect postoperative atelectasis, expected after surgery. Small bilateral pleural effusions noted on CT of the chest but were not appreciated on the chest x-ray, possibly related to some component of fluid overload or heart failure, patient will benefit from gentle diuresis, will recommend echocardiogram and assess LV function Nose fracture requiring surgery yesterday. Doubt underlying COPD or asthma patient had no previous history of such in the past. Type 2 diabetes. Coronary artery disease documented in 2016, did not require angioplasty or stent placement on medical therapy Dyslipidemia maintained on atorvastatin Benign essential hypertension on lisinopril History of hiatal hernia on omeprazole History of generalized anxiety disorder and depression, on proper therapy Plan: The patient was seen and evaluated Labs and medications reviewed On 2 L nasal cannula Evaluate for possible home oxygen Encouraged the increased use of the incentive spirometer Could follow up at the sleep center if concerns for obstructive sleep apnea or narcolepsy I have personally seen and examined the patient, performed the documentation and the assessment and plan as written. Number of minutes spent on the visit: 10.
--- NOTE | 2024-03-15 15:45 | CA ---
Transthoracic Echo Report Name: Yisel Edouard Age: 78 Gender: F : 1945 Exam Date: 03/15/2024 10:00 Exam Location: [facility] Ht (in): 63 Wt (lb): 213 Ordering Physician: Remberto Otto MD Attending/Referring Phys: Head Nurse Mesha Silveira RDCS Procedure CPT: Indications: lvfunction Cardiac Hx: Technical Quality: Fair Contrast 1: Total Dose (mL): Contrast 2: Total Dose (mL): MEASUREMENTS (Male / Female) Normal Values 2D ECHO LV Diastolic Diameter PLAX 4.2 cm 4.2 - 5.9 / 3.9 - 5.3 cm LV Systolic Diameter PLAX 2.8 cm IVS Diastolic Thickness 1.1 cm 0.6 - 1.0 / 0.6 - 0.9 cm LVPW Diastolic Thickness 1.1 cm 0.6 - 1.0 / 0.6 - 0.9 cm LV Relative Wall Thickness 0.5 RV Internal Dim ED PLAX 3.3 cm LA Systolic Diameter LX 3.6 cm 3.0 - 4.0 / 2.7 - 3.8 cm LV Diastolic Volume MOD 4C 85.9 cm??? LV Systolic Volume MOD 4C 43.9 cm??? LV Ejection Fraction MOD 4C 48.9 % LV Cardiac Index MOD 4C 1207.9 cm???/min???m??? LV Diastolic Length 4C 7.4 cm LV Systolic Length 4C 6.5 cm LV Diastolic Volume MOD 2C 90.7 cm??? LV Systolic Volume MOD 2C 34.1 cm??? LV Ejection Fraction MOD 2C 62.4 % LV Cardiac Index MOD 2C 1628.1 cm???/min???m??? LV Diastolic Length 2C 7.5 cm LV Systolic Length 2C 6.1 cm LA Volume 55.6 cm??? 18 - 58 / 22 - 52 cm??? LA Volume Index 26.2 cm???/m??? 16 - 28 cm???/m??? M-MODE Aortic Root Diameter MM 2.9 cm AV Cusp Separation MM 1.8 cm DOPPLER AV Peak Velocity 227.4 cm/s AV Peak Gradient 20.7 mmHg AI Peak Velocity 226.2 cm/s AI Peak Gradient 20.5 mmHg AI Pressure Half Time 640.5 ms MV Area PHT 2.9 cm??? Mitral E Point Velocity 101.9 cm/s Mitral A Point Velocity 117.6 cm/s Mitral E to A Ratio 0.9 MV Deceleration Time 260.5 ms TR Peak Velocity 245.6 cm/s TR Peak Gradient 24.1 mmHg Right Ventricular Systolic Press 28.4 mmHg FINDINGS Left Ventricle Left ventricular ejection fraction is estimated at 55-60 %. Left ventricular cavity size normal. Mildly increased septal wall thickness. Mildly increased posterior wall thickness. Normal left ventricular wall motion. Right Ventricle Mild right ventricular dilatation. Right ventricular systolic pressure within normal limits. Right Atrium Normal right atrial size. No right atrial thrombus or mass seen. Left Atrium Mildly increased left atrial volume. No left atrial thrombus or mass present. Mitral Valve Structurally normal mitral valve. No mitral stenosis, regurgitation or prolapse. Aortic Valve Trileaflet aortic valve. Aortic valve sclerosis. Mild aortic regurgitation. Tricuspid Valve Structurally normal tricuspid valve. Mild tricuspid regurgitation. Pulmonic Valve Structurally normal pulmonic valve. Mild pulmonic regurgitation. Pericardium No pericardial effusion. No pleural effusion. Aorta Normal size aortic root and proximal ascending aorta. CONCLUSIONS Left ventricular ejection fraction 55-60% Mildly increased left ventricular wall thickness RVSP 28 No mitral regurgitation Mild aortic regurgitation Mild tricuspid regurgitation Previewed by: Dr. Graham Coulter DO (Electronically Signed) Final Date: 15 March 2024 15:43
[2024-03-15 16:58] VITALS: BP 107/62; PULSE 76; RESP 18; TEMP 97.8
--- NOTE | 2024-03-15 21:00 | CONS ---
CONSULTATION CHIEF COMPLAINT: Postoperative. HISTORY: Ms. Edouard underwent septoplasty and closed nasal reduction 2 days ago. She had low oxygenation postoperatively and therefore was admitted, go home on nasal cannula oxygen. She had a mild pleural effusion bilaterally with atelectasis. PE was ruled out. She is feeling quite comfortable and has minimal nasal pain and respiratory difficulty. She has had no nasal drainage or bleeding. PHYSICAL EXAMINATION: The external nasal splint is intact. Her preoperative ecchymoses from her trauma is still resolving, but is improved from 2 days ago. Intranasal exam shows nasal septal splints intact. These were removed without difficulty. No bleeding is incited. No septal hematoma or perforation is noted. Excellent nasal airways bilaterally. No purulence or drainage otherwise. contact. ASSESSMENT: Postoperative septoplasty and closed nasal reduction, doing well from postoperative standpoint otherwise. Gave instructions to continue to avoid nose blowing. Recommended nasal saline spray, which she can obtain [id number], 2 sprays each nostril q.i.d. Keep external nose dry. If the external nose becomes loose, she can retain this. We will call her on Monday from the office to have appointment for external splint removal in the middle of next week. She will call if she has any questions or concerns. I appreciate for the Internal Medicine and [facility]ty [facility] care during the patient's hospitalization. MMANNL / IJN: [id number] /
--- NOTE | 2024-03-17 14:54 | P.DS ---
Providers Date of admission: 03/14/24 11:56 Attending physician: Christopher Nicole Consults: 03/13/24 18:49 Consult Physician Routine Consulting Provider: Alem Chung Consult Reason/Comments: ACUTE HYPOXIA POST SEPTOPLASTY SURGERY. Do you want consulting provider notified?: Yes Primary care physician: [facility] Course: HISTORY OF PRESENT ILLNESS: 78-year-old one of my office patient for many years with past medical history of obstructive sleep apnea, osteoarthritis, atherosclerotic heart disease with mild stenosis of the LAD did not require any angioplasty or stent placement, history of type 2 diabetes, High, hypertension, hyperlipidemia, severe GERD, depression and severe anxiety attacks, She apparently sustained a fall in February 28 created nasal fracture with severe deviated septum she was referred to ENT for close nasal reduction and septoplasty, procedure was done patient developed to have severe hypoxia requiring 5 L of O2 to keep her pulse ox at 88 percentile. Patient had no complaint of chest pain angina or major shortness of breath was left in recovery for a few hours not been able to bring her pulse ox any higher. Patient still not feeling very well not been able to release patient home she was hospitalized with above problem. Will run further testing including EKG, chest x-ray, full panel blood work including D-dimer and proBNP see if any of the above can explain her symptoms or is just related to her severe obstructive sleep apnea which become much worse with the weight gain she had this last 2 years that patient has not been using CPAP. 03/14/2024: Patient is doing very well resting in bed she is still on 4 L of O2 to keep her pulse ox above 90 percentile, vitals otherwise stable, D-dimer was elevated. Patient ended up going for CTA finding is consistent with no pulmonary embolism with small bilateral pleural effusion only at the right exam is unremarkable. Blood sugar is marginally elevated UA was negative. Vital signs continue to be well-controlled. Patient seen pulmonary seem to believe this is probably atelectasis postprocedure pacing the hypoxia and requirement for oxygen. Also Still seeing the patient on the see problem I will call her with her sleep apnea has not used her CPAP in ages encourage patient as an outpatient to go back to the sleep study and probably CPAP at some point. Medically after the patient does not require to go home on oxygen or not pulmonary had requested to do echocardiogram to measure LV function will observe patient for 1 more day try to wean her off or down on oxygen at least to 2 L may be so she can go home on oxygen 2 L till assessed in the office again. 03/15/2024: Patient is resting comfortably in bed interacting well with no major complaint or problem. She has an appointment to check on the packing in her incision with Dr. Dutton in the next day or so. Patient oxygen saturation on 2 L of O2 is about 90 percentile could not be without oxygen. Also does not require to be on a higher flow oxygen at this point. Request for echocardiogram evaluation of her left heart function and ejection fraction was complete finding of left ventricular systolic function of 55-60 percentile with right ventricular pressure of 28 mmHg only mild aortic regurgitation and mild tricuspid regurgitation with no major abnormality require any intervention or help. Long talk about sleep apnea possibility of require CPAP or C-Flex which patient will have an arrangement for sleep study as an outpatient and will require probably CPAP. She was acting similar to what seen with narcolepsy without any of the signs and symptoms of narcolepsy either she might just have the effect of the anesthesia and sedation more than anything else. Patient will be stable to be discharged home today 03/15/2024. REVIEW OF SYSTEMS: CONSTITUTIONAL: Obese and no acute respiratory distress. EYES: No icterus sclerae, no conjunctivitis. EARS, NOSE, MOUTH, THROAT, and FACE: No sore throat, lymphadenopathy, carotid bruits or deformity. RESPIRATORY: Positive SOB, no cough or wheezes. Significant hypoxia with mild dyspnea CARDIOVASCULAR: No CP, Palpitation, PND, Orthopnea, or angina. GASTROINTESTINAL: No Abd pain, Nausea or vomiting, no Diarrhea or constipation, No GI Bleed, no distention or masses. Significant heartburn and indigestion. GENITOURINARY: Negative for Hematuria or UTI, no kidney stones. INTEGUMENT/BREAST: Negative for any muscular injury with mild osteoarthritis.. HEMATOLOGIC/LYMPHATIC: Negative for bleed or purpura. MUSCULOSKELTAL: Negative for Myalgia or arthralgia. NEURLOGICAL: No LOC, Sz or syncope, blurred vision dizziness or abnormality.. BEHAVIORAL/PSYCH: Negative. ENDOCRINE: Negative. PHYSICAL EXAMINATION: General Appearance: Alert, obese, cooperative, no distress, appears stated age. Neck HEENT: Supple, no lymphadenopathy, no thyroid enlargement, no carotid and discomfort over the bridge of the nose and some packing on. Lungs: Decreased breath sound bilaterally with fine rhonchi no crackles or wheezes. Chest Wall: Decreased expansion with deep inspiration no tenderness and no deformity was found on exam, no costochondral pain or discomfort. Heart: Regular rate and rhythm, S1, S2 positive S3 no murmur. Back: Symmetric, no curvature, ROM normal, no CVA tenderness. Abdomen: Soft, non-tender, bowel sounds active all four quadrants, no masses, no organomegaly. Extremities: Extremities normal, atraumatic, no cyanosis or edema. Pulses: 2+ and symmetric. Skin: Skin color, texture, tugor normal, no rashes or lesions. Neurologic: Alert oriented x3 cranial nerves II through XII intact, no motor deficit, no abnormal balance or gait. ASSESSMENT AND PLAN: _Severe hypoxia with possible stable chronic respiratory failure, symptoms could be related to severe obstructive sleep apnea, underlying asthma or other. Continue oxygen between 2 and 3 L and will arrange for home oxygen for 2 L continuously for now. She might require for sleep study as an outpatient in the meanwhile I will requirement done by pulmonary was done including CTA was negative for PE, echocardiogram did not show any major abnormality, no sign of infection or infiltrate no sign of aspiration. Patient be stable to be discharged home follow-up the rest of her workup as an outpatient. _Nose fracture and nasal deviated septum: Postrepair with ENT, stable she has a follow-up appointment in 1 to 2 days. _Underlying asthma with worsening symptoms with GERD, probably causing slight irritation and aspiration, continue updraft treatment continue O2 for now. Will continue proton pump inhibitor as well. _Type 2 diabetes: Has been on metformin continue medication Accu-Chek with sliding scales coverage will be done. Blood sugar has been running in the low 100s. _Atherosclerotic heart disease with mild coronary artery disease from coronary angiogram back in 2016 did not require any angioplasty or stent placement just medical management. Request another echocardiogram eventually probably patient would benefit from going back to see cardiology for further testing. _Hyperlipidemia: Remain on atorvastatin 20 mg a day. _Elevated blood pressure: Has been on lisinopril 2.5 mg a day. _Hiatal hernia and severe GERD: Remain on pantoprazole. _Vitamin D deficiency: Remain on vitamin D supplement regular basis. _Severe depression remain on fluoxetine 40 mg a day and mirtazapine mirtazapine will be held for now. Discussion: CTA was negative for PE, no infiltrate or infection and no aspiration was found, also echocardiogram showed normal ejection fraction with mild pulmonary hypertension only with mild valvular heart disease. Patient will be ready to discharge home today 03/15/2024. Hospital course: Received a phone call from recovery room that patient was having procedure by ENT for nose fracture with severe deviated septum she had a closed nasal reduction and septoplasty procedure was done patient developed to have severe hypoxia required 5 L of O2 to keep her pulse ox above 90 percentile could not be discharged home from recovery was kept in the hospital for further testing including EKG x-ray D-dimer proBNP were done patient to be kept on BiPAP or oxygen at least through the night and admitted to the hospital at this point with above problem. Patient D-dimer was elevated and that going for CTA came back negative for pulmonary embolism. He was evaluated by pulmonary found to have no major infection or abnormality might have mild hypoxia secondary to atelectasis from her procedure with the possibility of bronchitis and most likely obstructive sleep apnea which patient was diagnosed with early but never uses CPAP. Pulmonary also requested echocardiogram to evaluate the left ventricle function which was done and came back with normal left ventricular function and valvular heart disease. Patient had improved significantly on the and done very well finalize her testing still require O2 will arrange for oxygen at home 2 to 3 L and patient to be discharged home to follow-up as an outpatient we have sleep study as an outpatient as well. Time spent on discharging patient was over 30 minutes. Plan - Discharge Summary Discharge Rx Participant: Yes New Discharge Prescriptions: New Cephalexin [Keflex] 500 mg PO QID #40 cap Albuterol Sulfate [Ventolin HFA] 2 puff INHALATION Q6H PRN #1 each PRN Reason: Shortness Of Breath Continue Aspirin 81 mg PO DAILY 30 Days chew Atorvastatin [Lipitor] 10 mg PO DAILY 30 Days tab Melatonin 6 mg PO HS 30 Days tablet Acetaminophen Tab [Tylenol] 650 mg PO Q4HR PRN tab PRN Reason: Pain/Discomfort FLUoxetine HCL [PROzac] 40 mg PO QAM Discontinued Mirtazapine [Remeron] 15 mg PO HS 30 Days tab Discharge Medication List Acetaminophen Tab [Tylenol] 650 mg PO Q4HR PRN tab 08/26/20 [Rx] Aspirin 81 mg PO DAILY 30 Days chew 08/26/20 [Rx] Atorvastatin [Lipitor] 10 mg PO DAILY 30 Days tab 08/26/20 [Rx] Melatonin 6 mg PO HS 30 Days tablet 08/26/20 [Rx] FLUoxetine HCL [PROzac] 40 mg PO QAM 03/12/24 [History] Albuterol Sulfate [Ventolin HFA] 2 puff INHALATION Q6H PRN #1 each 03/15/24 [Rx] Cephalexin [Keflex] 500 mg PO QID #40 cap 03/15/24 [Rx] Follow up Appointment(s)/Referral(s): Alem Chung MD [STAFF PHYSICIAN] - 04/17/24 10:15 am Remberto Otto MD [Primary Care Provider] - 1 Week (Office not answering after multiple attempts, please contact JENN to schedule follow up appointment.) Christopher Nicole MD [STAFF PHYSICIAN] - 03/22/24 10:15 am (With Marina MCKEON.) Patient Instructions/Handouts: *Surgery [facility] - (Anesthesia) Discharge Instructions Outpatient Surgery, Using Oxygen at Home (DC), Hypoxia (ED), Septoplasty (DC) Activity/Diet/Wound Care/Special Instructions: Admit to outpatient surgery Vitals per routine Discharge meets criteria Follow-up as scheduled in 2 days for nasal septal splint removal Keep external nose dry keep nasal splint externally dry and if it becomes loose place tape [place] and Keflex sent to pharmacy already Tylenol 1000 mg by mouth every 4 hours when necessary mild pain call if questions or concerns regarding any abnormal bleeding, signs or symptoms of infection, other questions or concerns Discharge Disposition: HOME SELF-CARE
== END 2024-03-15 16:28 | disposition home or self-care (01) | DRG 155 ==
LOC: OR 12:50 → 3SCARD 16:19 → OR 03-14 11:56 → 3SCARD 03-14 11:56
PROVIDERS: ADMIT Otolaryngology; ATTEND Otolaryngology
PROC: 0NSBXZZ Reposition Nasal Bone, External Approach (ICD-10-PCS; principal; 2024-03-13 14:25)
DX: S02.2XXA Fracture of nasal bones, initial encounter for closed fracture (principal); J96.11 Chronic respiratory failure with hypoxia; I27.29 Other secondary pulmonary hypertension; E11.9 Type 2 diabetes mellitus without complications; I08.2 Rheumatic disorders of both aortic and tricuspid valves; K75.81 Nonalcoholic steatohepatitis (NASH); F32.A Depression, unspecified; E66.9 Obesity, unspecified; I10 Essential (primary) hypertension; J45.909 Unspecified asthma, uncomplicated; Z68.35 Body mass index [BMI] 35.0-35.9, adult; K21.9 Gastro-esophageal reflux disease without esophagitis; K44.9 Diaphragmatic hernia without obstruction or gangrene; E55.9 Vitamin D deficiency, unspecified; J34.2 Deviated nasal septum; J98.8 Other specified respiratory disorders; G47.33 Obstructive sleep apnea (adult) (pediatric); I25.10 Atherosclerotic heart disease of native coronary artery without angina pectoris; E78.5 Hyperlipidemia, unspecified; F41.1 Generalized anxiety disorder; W19.XXXA Unspecified fall, initial encounter; Z96.652 Presence of left artificial knee joint; Z79.82 Long term (current) use of aspirin; Z79.899 Other long term (current) drug therapy; Z88.8 Allergy status to other drugs, medicaments and biological substances
CPT/HCPCS: 71045; 71275; 80053; 81003; 83880; 85027; 85379; 88300; 93306; 94640; 94760

== ENCOUNTER → 2024-05-24 | Outpatient (CLI) | payer MEDICARE, BC ==
--- NOTE | 2024-06-02 13:27 | MM ---
Reason for Exam: Screening (asymptomatic). Last mammogram was performed 6 year(s) and 1 month(s) ago. Patient History: Menarche at age 14. First Full-Term at age 25. Hysterectomy at age 43. Postmenopausal. Patient used Estrogen for 6 years. Patient used Progesterone for 6 years. Risk Values: Mikki 5 year model risk: 1.6%. NCI Lifetime model risk: 3.0%. Prior Study Comparison: 04/11/2016 Bilateral Screening Mammogram, [facility]. 04/14/2017 Bilateral Screening Mammogram, [facility]. 05/02/2018 Bilateral Screening Mammogram, [facility]. Tissue Density: The breasts are heterogeneously dense, which may obscure small masses. Findings: Analyzed By CAD. The pattern is symmetrical. No significant interval change is evident. A palpable marker is placed next to focal asymmetry in the outer right breast. Patient returns reports a bruise in this area. This could be an underlying contusion. This may be better visualized than previous. Additional workup is recommended Left breast:No suspicious groups of microcalcifications, spiculated or lobular masses, architectural distortion or other secondary signs of malignancy are mammographically apparent. Overall Assessment: Incomplete: need additional imaging evaluation, BI-RAD 0 Management: Diagnostic Mammogram of the right breast. Diagnostic Breast Ultrasound of the right breast. A negative mammogram report should not preclude additional follow up of suspicious palpable abnormalities. Patient should continue monthly self breast exam. A clinical breast exam by your physician is recommended on an annual basis and results should be correlated with mammographic findings. Note on Mikki scores and lifetime risk: 1. A Mikki score greater than 3% is considered moderate risk. If this is the case, consider specialist referral to assess eligibility for a risk reducing agent. 2. If overall lifetime risk for the development of breast cancer is 20% or higher, the patient may qualify for future screening with alternating mammogram and breast MRI. [facility], , 06/02/2024 1:24 PM. Electronically signed and approved by: Oni Gutierrez D.O. Radiologis
--- NOTE | 2024-06-03 21:42 | BD ---
EXAMINATION TYPE: Axial Bone Density DATE OF EXAM: 05/24/2024 CLINICAL HISTORY: 78 years old Female. ICD-10 CODE: M81.0 AGE-RELATED OSTEOPOROSIS Height: 61.5in Weight: 205lb FRAX RISK QUESTIONS: History of Fracture in Adulthood: yes Secondary Osteoporosis: 3. Menopause before 45: yes RISK FACTORS HISTORY OF: MEDICATIONS: EXAM MEASUREMENTS: Bone mineral densitometry was performed using the [employer] System. Bone mineral density as measured about the Lumbar spine is: ----- L1-L4(G/cm2): 1.462 T Score Values are as follows: ----- L1: 2.0 ----- L2: 3.0 ----- L3: 2.3 ----- L4: 2.0 ----- L1-L4: 2.3 Z Score Values are as follows: ----- L1: 2.9 ----- L2: 3.9 ----- L3: 3.1 ----- L4: 2.8 ----- L1-L4: 3.2 Bone mineral density has: Increased 4.1% since study of: 05-02-18 Bone mineral density about the R hip (g/cm2): 0.885 Bone mineral density about the L hip (g/cm2): 0.963 T Score values are as follows: -----R Neck: -1.5 -----L Neck: -1.4 -----R Total: -1.0 -----L Total: -0.4 Z Score values are as follows: -----R Neck: -0.1 -----L Neck: 0.0 -----R Total: 0.2 -----L Total: 0.8 Bone mineral density has: Decreased -1.1% since study of: 05-02-18 FRAX%s: The graph provided illustrates a 16.9% chance for a major osteoporotic fx and a 3.3% chance f or the hips probability for fx in 10 years time. IMPRESSION: Osteopenia (T Score between -2.5 and -1). There is slightly increased risk of fracture and the patient may be considered for treatment. Re-Screen 2-5 years. NOTE: T-SCORE=SD OF THE YOUNG ADULT MEAN. [facility], Workstation: [facility], 06/03/2024 9:39 PM
== END | disposition home or self-care (01) ==
LOC: RADBDWWP 13:43
PROVIDERS: ATTEND Internal Medicine Geriatric Medicine
DX: Z12.31 Encounter for screening mammogram for malignant neoplasm of breast (principal); M81.0 Age-related osteoporosis without current pathological fracture; R92.333 Mammographic heterogeneous density, bilateral breasts; M85.89 Other specified disorders of bone density and structure, multiple sites; Z78.0 Asymptomatic menopausal state
CPT/HCPCS: 77063; 77067; 77080

== ENCOUNTER → 2024-06-07 | Outpatient (CLI) | payer MEDICARE, BC ==
--- NOTE | 2024-06-07 14:30 | MM ---
Reason for Exam: Additional evaluation requested from abnormal screening. Last screening mammogram was performed less than 1 month ago. Patient History: Menarche at age 14. First Full-Term at age 25. Hysterectomy at age 43. Postmenopausal. Patient used Estrogen for 6 years. Patient used Progesterone for 6 years. Risk Values: Mikki 5 year model risk: 1.6%. NCI Lifetime model risk: 3.0%. Prior Study Comparison: 04/11/2016 Bilateral Screening Mammogram, [facility]. 04/14/2017 Bilateral Screening Mammogram, [facility]. 05/02/2018 Bilateral Screening Mammogram, [facility]. 05/24/2024 Bilateral MG 3D screening mammo w/cad, [facility]. Tissue Density: Right: The breasts are heterogeneously dense, which may obscure small masses. Findings: Analyzed By CAD. Vague density upper outer right breast at the palpable site measuring 1 cm. Ultrasound is recommended. Overall Assessment: Incomplete: need additional imaging evaluation, BI-RAD 0 Management: Diagnostic Breast Ultrasound of the right breast. . Results were given to the patient verbally at the time of exam. Patient should continue monthly self-breast exams. A clinical breast exam by your physician is recommended on an annual basis. This exam should not preclude additional follow-up of suspicious palpable abnormalities. Note on Mikki scores and lifetime risk: 1. A Mikki score greater than 3% is considered moderate risk. If this is the case, consider specialist referral to assess eligibility for a risk reducing agent. 2. If overall lifetime risk for the development of breast cancer is 20% or higher, the patient may qualify for future screening with alternating mammogram and breast MRI. [facility], , 06/07/2024 2:27 PM. Electronically signed and approved by: Walker Neves M.D. Radiologis
--- NOTE | 2024-06-07 14:43 | USB ---
Reason for Exam: Additional evaluation requested from abnormal screening. Patient History: Menarche at age 14. First Full-Term at age 25. Hysterectomy at age 43. Postmenopausal. Patient used Estrogen for 6 years. Patient used Progesterone for 6 years. Risk Values: Mikki 5 year model risk: 1.6%. NCI Lifetime model risk: 3.0%. Technique: Method: Targeted. Prior Study Comparison: 04/14/2017 Bilateral Screening Mammogram, [facility]. 05/02/2018 Bilateral Screening Mammogram, [facility]. 05/24/2024 Bilateral MG 3D screening mammo w/cad, [facility]. Findings: The area of palpable concern of the right breast, the axilla of the right breast and the retroareolar of the right breast were scanned. Hyperechoic area at the site of clinical concern right breast 10:00 position 10 cm from the nipple measuring 1.3 x 1.5 x 1.0 cm. This is likely reflective of a hematoma. Three-month follow-up ultrasound is recommended as a precautionary measure. Correlate clinically. Overall Assessment: Probably benign, BI-RAD 3 Management: Diagnostic Breast Ultrasound of the right breast in 3 months. A clinical breast exam by your physician is recommended on an annual basis and results should be correlated with mammographic findings. This exam should not preclude additional follow-up of suspicious palpable abnormalities. Results were given to the patient verbally at the time of exam. [facility], , 06/07/2024 2:40 PM. Electronically signed and approved by: Walker Neves M.D. Radiologis
== END | disposition home or self-care (01) ==
LOC: RADMAMWWP 14:02
PROVIDERS: ATTEND Internal Medicine Geriatric Medicine
DX: R92.8 Other abnormal and inconclusive findings on diagnostic imaging of breast
CPT/HCPCS: 77061; 77065